=== PATIENT | male | born 1975 | race Caucasian/White ===

== ENCOUNTER 2016-08-12 20:41 | Inpatient (IN) | payer MEDICAID, OTHER ==
[~2016-08-12] VITALS: Ht 172.7 cm; Wt 89.0 kg
[2016-08-12] MEDS ORDERED: ACETAMINOPHEN 325 MG TAB PO ONE (20:45)
[2016-08-12] MEDS ORDERED: SODIUM CHLOR 0.9% 1000 ML INJ 1,000 ML IV ONE ×2 (20:45)
[2016-08-12 20:49] VITALS: BP 136/79; PULSE 132; RESP 27; TEMP 98.5; O2SAT 93
--- NOTE | 2016-08-12 20:50 | PD ---
HPI Chief Complaint: shortness of breath Time Seen by Provider: 20:45 Travel History International Travel<30 days: No Contact w/Intl Traveler<30days: No Traveled to known affect area: No History of Present Illness HPI 41-year-old male with history of chips and deficiency, COPD, on 3 L nasal cannula at home, brought in by ambulance from home for evaluation of cough, shortness of breath, and fever. Symptoms have been progressively worsening over the last 3 days. Cough is nonproductive. The patient also reports having sharp/stabbing right-sided chest pain. He denies history of CAD. No history of DVT or PE. No hemoptysis. He was given 3 albuterol treatments and Solu- Medrol 125 mm IV by EMS prior to arrival without significant improvement. Dyspnea is at rest, worse with exertion. PFSH Social History Tobacco Use: No Allergies-Medications (Allergen,Severity, Reaction): Coded Allergies: No Known Allergies (Unverified , 08/12/16) Reported Meds & Prescriptions Reported Meds & Active Scripts Active Reported [o2] 3 Liter DEV.CANULA DAILY Zoloft (Sertraline HCl) 100 Mg Tab 200 Mg PO DAILY Trazodone (Trazodone HCl) 100 Mg Tab 250 Mg PO HS Zantac 150 Maximum Strength (Ranitidine HCl) 150 Mg Tab 150 Mg PO BID [pantoerazole] 40 Mg PO DAILY Lisinopril 20 Mg Tab 20 Mg PO DAILY Invokana (Canagliflozin) 300 Mg Tab 500 Mg PO DAILY Take before 1st meal of day. Metformin (Metformin HCl) 500 Mg Tab 500 Mg PO BIDPC With meals Albuterol Neb (Albuterol Sulfate) 2.5 Mg/3 Ml Neb 2.5 Mg NEB Q4HR NEB While awake Ventolin Hfa 18 GM Inh (Albuterol Sulfate) 90 Mcg/Act Aer 2 Puff INH Q4-6H PRN Review of Systems Except as stated in HPI: all other systems reviewed are Neg Physical Exam Narrative GENERAL: Well-developed, well-nourished, diaphoretic, moderate respiratory distress, speaking full sentences. SKIN: Warm and diaphoretic. HEAD: Atraumatic. Normocephalic. EYES: Pupils equal and round. No scleral icterus. No injection or drainage. ENT: Mucous membranes pink and moist. NECK: Trachea midline. No JVD. CARDIOVASCULAR: Tachycardic, regular. RESPIRATORY: Moderate respiratory distress. Speaking full sentences. Coarse breath sounds bilaterally. GASTROINTESTINAL: Abdomen soft, non-tender, nondistended. MUSCULOSKELETAL: No obvious deformities. No clubbing. No cyanosis. No edema. NEUROLOGICAL: Awake and alert. No obvious cranial nerve deficits. Motor grossly within normal limits. Normal speech. PSYCHIATRIC: Appropriate mood and affect; insight and judgment normal. Data Data Last Documented VS Vital Signs Date Time Temp Pulse Resp B/P Pulse Ox O2 Delivery O2 Flow Rate FiO2 08/12/16 22:00 108 18 151/86 94 Nasal Cannula 3 08/12/16 20:49 98.5 Orders Complete Blood Count With Diff (08/12/16 20:45) Comprehensive Metabolic Panel (08/12/16 20:45) Act Partial Throm Time (Ptt) (08/12/16 20:45) Prothrombin Time / Inr (Pt) (08/12/16 20:45) Ckmb (Isoenzyme) Profile (08/12/16 20:45) Troponin I (08/12/16 20:45) Influenzae A/B Antigen (08/12/16 20:45) Blood Culture (08/12/16 20:45) Iv Access Insert/Monitor (08/12/16 20:45) Electrocardiogram (08/12/16 20:45) Ecg Monitoring (08/12/16 20:45) Oximetry (08/12/16 20:45) Oxygen Administration (08/12/16 20:45) Chest, Single Ap (08/12/16 20:45) Sodium Chloride 0.9% Flush (Ns Flush) (08/12/16 20:45) Acetaminophen (Tylenol) (08/12/16 20:45) Sodium Chlor 0.9% 1000 Ml Inj (Ns 1000 M (08/12/16 20:45) Sodium Chlor 0.9% 1000 Ml Inj (Ns 1000 M (08/12/16 20:45) Albuterol-Ipratropium Neb (Duoneb Neb) (08/12/16 21:00) Lactic Acid (08/12/16 20:48) D-Dimer (08/12/16 20:45) Ceftriaxone Inj (Rocephin Inj) (08/12/16 21:45) Azithromycin Inj (Zithromax Inj) (08/12/16 21:45) Al-Mag Hy-Si 40-40-4 Mg/Ml Liq (Mag-Al P (08/12/16 22:00) Lidocaine 2% Viscous (Xylocaine 2% Visco (08/12/16 22:00) Admit Order (Ed Use Only) (08/12/16 22:45) Labs Laboratory Tests Test 08/12/16 21:00 White Blood Count 5.3 TH/MM3 Red Blood Count 4.98 MIL/MM3 Hemoglobin 14.4 GM/DL Hematocrit 41.1 % Mean Corpuscular Volume 82.5 FL Mean Corpuscular Hemoglobin 28.9 PG Mean Corpuscular Hemoglobin 35.0 % Concent Red Cell Distribution Width 13.0 % Platelet Count 202 TH/MM3 Mean Platelet Volume 8.2 FL Neutrophils (%) (Auto) 60.8 % Lymphocytes (%) (Auto) 29.2 % Monocytes (%) (Auto) 7.0 % Eosinophils (%) (Auto) 2.3 % Basophils (%) (Auto) 0.7 % Neutrophils # (Auto) 3.2 TH/MM3 Lymphocytes # (Auto) 1.5 TH/MM3 Monocytes # (Auto) 0.4 TH/MM3 Eosinophils # (Auto) 0.1 TH/MM3 Basophils # (Auto) 0.0 TH/MM3 CBC Comment DIFF FINAL Differential Comment Prothrombin Time 10.7 SEC Prothromb Time International 1.0 RATIO Ratio Activated Partial 30.2 SEC Thromboplast Time D-Dimer Quantitative (PE/DVT) 0.41 MG/L FEU Sodium Level 141 MEQ/L Potassium Level 3.3 MEQ/L Chloride Level 103 MEQ/L Carbon Dioxide Level 27.8 MEQ/L Anion Gap 10 MEQ/L Blood Urea Nitrogen 11 MG/DL Creatinine 1.09 MG/DL Estimat Glomerular Filtration 74 ML/MIN Rate Random Glucose 267 MG/DL Lactic Acid Level 2.2 mmol/L Calcium Level 8.0 MG/DL Total Bilirubin 0.4 MG/DL Aspartate Amino Transf 15 U/L (AST/SGOT) Alanine Aminotransferase 28 U/L (ALT/SGPT) Alkaline Phosphatase 111 U/L Total Creatine Kinase 52 U/L Troponin I LESS THAN 0.02 NG/ML Total Protein 7.2 GM/DL Albumin 3.6 GM/DL MDM Medical Decision Making Medical Screen Exam Complete: Yes Emergency Medical Condition: Yes Interpretation(s) EKG: Sinus tachycardia, rate 123, normal axis, normal intervals, no acute ischemic abnormality. Differential Diagnosis Pneumonia, influenza, COPD exacerbation, ACS, PE, pneumothorax Narrative Course Initial vital signs show heart rate 132, respiratory rate 27, blood pressure 136 /79, pulse ox 93% on 3 L nasal cannula. EMS reported a temp of 99.9F. CBC is unremarkable. CMP is remarkable for potassium 3.3, random glucose 267, otherwise unremarkable. Cardiac enzymes are negative. D-dimer 0.41. Influenza is negative. Chest x-ray: Minimal area of focal atelectasis or consolidation at the right base. Patient was given IV Rocephin and azithromycin. He was also given 3 DuoNeb treatments here in the emergency room. Other he is feeling slightly improved, he still for short of breath and has generalized weakness. He is still tachycardic despite receiving IV fluids. Given history of alpha-1 antitrypsin disease/COPD, patient be admitted for overnight observation for CPD exacerbation , pneumonia. Diagnosis Primary Impression: COPD exacerbation Additional Impression: Pneumonia Qualified Code: J18.1 - Pneumonia of right lower lobe due to infectious organism Admitting Information Admitting Physician Requests: Observation Osvaldo Roland MD Aug 12, 2016 20:49
[2016-08-12 20:53] VITALS: O2SAT 91
[2016-08-12] MEDS ORDERED: TRAZ100T4 PO (21:04)
[2016-08-12] MEDS ORDERED: LISI-515 PO (21:04)
[2016-08-12] MEDS ORDERED: VENTAER INH (21:04)
[2016-08-12] MEDS ORDERED: ALBU0.08 NEB (21:04)
[2016-08-12] MEDS ORDERED: o2 NAS.CANULA (21:04)
[2016-08-12] MEDS ORDERED: METF500T PO (21:04)
[2016-08-12] MEDS ORDERED: PANTOPRAZOLE PO (21:04)
[2016-08-12] MEDS ORDERED: CANA300T PO (21:04)
[2016-08-12] MEDS ORDERED: ZANTTAB PO (21:04)
[2016-08-12] MEDS ORDERED: ZOLO100T PO (21:04)
[2016-08-12] MEDS: RESP: ALBUTEROL 2.5 MG/IPRATROPIUM 0.5 MG NEB (SCH) INH ×2 (21:10→23:32)
[2016-08-12] MEDS: SODIUM CHLORIDE 0.9% FLUSH 5 ML FLUSH IVF PRN ×3 (21:17→22:49)
[2016-08-12 21:33] LABS: AUTOMATED NEUTROPHIL # 3.2 TH/MM3 (1.8-7.7); BASOPHIL % 0.7 % (0.0-2.0); EOSINOPHIL # 0.1 TH/MM3 (0-0.4); EOSINOPHIL % 2.3 % (0.0-4.0); HEMATOCRIT 41.1 % (39.0-51.0); HEMO FLAGS DIFF FINAL; LYMPH % 29.2 % (9.0-44.0); LYMPHOCYTE # 1.5 TH/MM3 (1.0-4.8); MEAN CELL VOLUME 82.5 FL (80.0-100.0); MEAN CORPUSCULAR HEMOGLOBIN 28.9 PG (27.0-34.0); NEUT % 60.8 % (16.0-70.0); PLATELET COUNT 202 TH/MM3 (150-450); RED BLOOD COUNT 4.98 MIL/MM3 (4.50-5.90); WHITE BLOOD COUNT 5.3 TH/MM3 (4.0-11.0)
--- NOTE | 2016-08-12 21:39 | RADRPT ---
EXAM DATE/TIME: 08/12/2016 21:25 [facility] COMPARISON: No previous studies available for comparison. INDICATIONS : Short of breath. MEDICAL HISTORY : None. SURGICAL HISTORY : None. ENCOUNTER: Initial ACUITY: 1 day PAIN SCORE: 5/10 LOCATION: Bilateral chest FINDINGS: The heart size is normal. There is minimal focal density at the right base. The left lung is clear. N o effusion is seen. CONCLUSION: Minimal area of focal atelectasis or consolidation at the right base. Quan Ruby MD on August 12, 2016 at 21:37 Board Certified Radiologist. This report was verified electronically.
[2016-08-12] MEDS ORDERED: cefTRIAXone INJ 1,000 MG in SODIUM CHLORIDE 0.9% INJ 100 ML IV ONE (21:45)
[2016-08-12] MEDS ORDERED: AZITHROMYCIN INJ 500 MG in SODIUM CHLOR 0.9% 250 ML INJ 250 ML IV ONE (21:45)
[2016-08-12 21:54] LABS: APTT (PATIENT) 30.2 SEC (24.3-30.1); PROTHROMBIN TIME - PATIENT 10.7 SEC (9.8-11.6)
[2016-08-12 21:59] LABS: ALKALINE PHOSPHATASE 111 U/L (45-117); ALT (GPT) 28 U/L (12-78); ANION GAP 10 MEQ/L (5-15); AST (GOT) 15 U/L (15-37); BICARBONATE 27.8 MEQ/L (21.0-32.0); BLOOD UREA NITROGEN 11 MG/DL (7-18); CHLORIDE 103 MEQ/L (98-107); GLOMERULAR FILTRATION RATE 74 ML/MIN (>89); SODIUM (NA) 141 MEQ/L (136-145); TOTAL BILIRUBIN ADULT 0.4 MG/DL (0.2-1.0)
[2016-08-12 22:00] VITALS: BP 151/86; PULSE 108; RESP 18; O2SAT 94
[2016-08-12] MEDS ORDERED: ALUMINUM/MAGNESIUM/SIMETH 30 ML CUP PO ONE (22:00)
[2016-08-12] MEDS ORDERED: LIDOCAINE VISCOUS 2% SOLN 15 ML UDC PO ONE (22:00)
[2016-08-12 22:11] LABS: CREATINE KINASE 52 U/L (39-308); POTASSIUM 3.3 MEQ/L (3.5-5.1)
[2016-08-12] MEDS ORDERED: ACETAMINOPHEN/HYDROcodone 325 MG/5 MG TAB PO PRN (22:45)
[2016-08-12] MEDS ORDERED: RESP: ALBUTEROL 2.5 MG/IPRATROPIUM 0.5 MG NEB (PRN) NEB (22:45)
[2016-08-12] MEDS ORDERED: ACETAMINOPHEN 325 MG TAB PO PRN (22:45)
[2016-08-12] MEDS ORDERED: BISACODYL 10 MG SUPP PR PRN (22:45)
--- NOTE | 2016-08-12 23:04 | HHI.HP ---
[facility] Unknown Admission Diagnosis COPD exacerbation, pneumonia Diagnoses: (1) PNA (pneumonia) Diagnosis: Principal (2) COPD (chronic obstructive pulmonary disease) Diagnosis: Principal (3) Xahth-6-[id number] deficiency Diagnosis: Principal (4) HTN (hypertension) Diagnosis: Principal (5) DM (diabetes mellitus) Diagnosis: Principal Travel History International Travel<30 Days: No Contact w/Intl Traveler <30 Da: No Traveled to Known Affected Are: No History of Present Illness This is a 41-year-old male with a PMH of Alpha 1 Antitrypsin Deficiency, COPD, O2 Dependent on 3L NC, DM and HTN who was brought to the ER by EMS secondary to c/o SOB. States symptoms have gotten progressively worse over the last 2-3 days. Denies fever or chills. Reports non-productive cough in addition to wheezing. S/p Solu-Medrol 125mg x1 and DuoNeb by EMS w/ some improvement. On arrival, BP 136/79, HR 132, O2 sat 93% on RA, Afebrile. CBC unremarkable. K+ 3.3. Lactic Acid 2.2. BS 267. CXR with minimal area of focal atelectasis or consolidation right base. S/p Blood Cultures, Rocephin/Zithro and Solu-Medrol in ER w/ improvement. Review of Systems Other ROS: 14 point review of systems otherwise negative. Past Family Social History Past Medical History PMH: Alpha 1 Antitrypsin Deficiency, COPD, O2 Dependent on 3L NC, DM and HTN Past Surgical History PAST SURGICAL HISTORY: Hernia Repair, Left Shoulder Surgery, Left Wrist Surgery Allergies: Coded Allergies: No Known Allergies (Unverified , 08/12/16) Family History PAST FAMILY HISTORY: Reviewed, positive for DM. Social History PAST SOCIAL HISTORY: History of tobacco abuse, quit 1 year ago. Negative for alcohol or drugs. Physical Exam Vital Signs Vital Signs Date Time Temp Pulse Resp B/P Pulse Ox O2 Delivery O2 Flow Rate FiO2 08/12/16 20:53 91 3 08/12/16 20:53 92 Nasal Cannula 3 08/12/16 20:49 98.5 132 27 136/79 93 Physical Exam PE: GENERAL: Pleasant middle-aged white male in no acute distress, occasional dry cough HEENT: PERRLA, EOMI. No scleral icterus or conjunctival pallor. No lid lag or facial droop. CARDIOVASCULAR: Regular rate and rhythm. No obvious murmurs to auscultation. No chest tenderness to palpation. RESPIRATORY: No obvious rhonchi. Occasional wheezing. Clear to auscultation. Breath sounds equal bilaterally. GASTROINTESTINAL: Abdomen soft, non-tender, nondistended. BS normal. MUSCULOSKELETAL: Extremities without clubbing, cyanosis, or edema. No obvious deformities. NEUROLOGICAL: Awake, alert and oriented x4. No focal neurologic deficits. Moving both upper and lower extremities spontaneously. Laboratory Laboratory Tests Test 08/12/16 21:00 White Blood Count 5.3 Red Blood Count 4.98 Hemoglobin 14.4 Hematocrit 41.1 Mean Corpuscular Volume 82.5 Mean Corpuscular Hemoglobin 28.9 Mean Corpuscular Hemoglobin 35.0 Concent Red Cell Distribution Width 13.0 Platelet Count 202 Mean Platelet Volume 8.2 Neutrophils (%) (Auto) 60.8 Lymphocytes (%) (Auto) 29.2 Monocytes (%) (Auto) 7.0 Eosinophils (%) (Auto) 2.3 Basophils (%) (Auto) 0.7 Neutrophils # (Auto) 3.2 Lymphocytes # (Auto) 1.5 Monocytes # (Auto) 0.4 Eosinophils # (Auto) 0.1 Basophils # (Auto) 0.0 CBC Comment DIFF FINAL Differential Comment Prothrombin Time 10.7 Prothromb Time International 1.0 Ratio Activated Partial 30.2 Thromboplast Time D-Dimer Quantitative (PE/DVT) 0.41 Sodium Level 141 Potassium Level 3.3 Chloride Level 103 Carbon Dioxide Level 27.8 Anion Gap 10 Blood Urea Nitrogen 11 Creatinine 1.09 Estimat Glomerular Filtration 74 Rate Random Glucose 267 Calcium Level 8.0 Total Bilirubin 0.4 Aspartate Amino Transf 15 (AST/SGOT) Alanine Aminotransferase 28 (ALT/SGPT) Alkaline Phosphatase 111 Total Creatine Kinase 52 Troponin I LESS THAN 0.02 Total Protein 7.2 Albumin 3.6 Date/Time Procedure Status Source Growth 08/12/16 21:50 Influenza Types A,B Antigen (TK) Received Nasal Washing Pending 08/12/16 21:00 Aerobic Blood Culture Received Blood Peripheral Pending 08/12/16 21:00 Anaerobic Blood Culture Received Blood Peripheral Pending Result Diagram: 08/12/16 2100 08/12/16 2100 Assessment and Plan Problem List: (1) PNA (pneumonia) ICD Code: J18.9 Status: Acute (2) COPD (chronic obstructive pulmonary disease) ICD Code: J44.9 Status: Acute (3) Lfkiz-6-hzehelhebfy deficiency ICD Code: E88.01 Status: Acute (4) DM (diabetes mellitus) ICD Code: E11.9 Status: Acute (5) HTN (hypertension) ICD Code: I10 Status: Acute Assessment and Plan A/P: 1. PNA: CXR w/ RLL consolidation, images reviewed by me. Progressive SOB x2- 3 days w/ non-productive cough. S/p Blood Cultures, Rocephin/Zithro in ER, follow up cultures, continue w/ IV Abx. 2. Alpha 1 Antitrypsin Deficiency: O2 Dependent on 3L NC. O2 sat 93-94% on 3L NC, will continue to monitor. 3. COPD: Chronic Respiratory Failure secondary to Alpha-1 Antitrypsin Def w/ Acute Exacerbation. Solu-Medrol, DuoNeb, Symbicort, Mucinex. 4. DM: Sliding scale w/ Accu-Cheks. Resume home Metformin, Invokana. 5. HTN: Controlled. Resume Lisinopril. Monitor BP. 6. DVT Prophylaxis: SCD/Teds. 7. Social work for d/c planning as needed. 8. Case discussed w/ ER physician at length. Dennise Martin MD Aug 12, 2016 23:04
[2016-08-12] MEDS ORDERED: DEXTROSE 50% IN WATER 50 ML VIAL(D50) IV PUSH PRN (23:15)
[2016-08-12] MEDS ORDERED: GLUCAGON 1 MG/ML VIAL OTHER PRN (23:15)
[2016-08-12] MEDS: methylPREDNISolone SOD SUCC 40 MG/1 ML VIAL IV PUSH SCH (23:56)
[2016-08-13] VITALS (11 sets, daily range): BP systolic 99–148; BP diastolic 64–85; PULSE 78–102; RESP 17–20; TEMP 96–98.1; O2SAT 92–95
[2016-08-13] MEDS: ACETAMINOPHEN/HYDROcodone 325 MG/10 MG TAB PO PRN ×6 (00:05→22:21)
[2016-08-13] MEDS: ONDANSETRON HCL 4 MG/2 ML VIAL IVP PRN ×2 (03:16→12:54)
[2016-08-13] MEDS: methylPREDNISolone SOD SUCC 40 MG/1 ML VIAL IV PUSH SCH ×3 (04:24→17:30)
[2016-08-13] MEDS ORDERED: INSULIN ASPART SUPPLEMENTAL SCALE SQ SCH (07:00)
[2016-08-13] MEDS ORDERED: RESP: ALBUTEROL 2.5 MG/IPRATROPIUM 0.5 MG NEB (SCH) NEB (08:00)
[2016-08-13 08:34] LABS: AUTOMATED NEUTROPHIL # 3.8 TH/MM3 (1.8-7.7); BASOPHIL % 0.3 % (0.0-2.0); EOSINOPHIL % 0.1 % (0.0-4.0); HEMATOCRIT 39.6 % (39.0-51.0); HEMO FLAGS DIFF FINAL; LYMPH % 11.3 % (9.0-44.0); LYMPHOCYTE # 0.5 TH/MM3 (1.0-4.8); MEAN CELL VOLUME 82.7 FL (80.0-100.0); MEAN CORPUSCULAR HEMOGLOBIN 27.4 PG (27.0-34.0); MEAN CORPUSCULAR HGB CONC 33.1 % (32.0-36.0); MONO % 0.8 % (0.0-8.0); NEUT % 87.5 % (16.0-70.0); PLATELET COUNT 172 TH/MM3 (150-450); RED BLOOD COUNT 4.79 MIL/MM3 (4.50-5.90); RED CELL DISTRIBUTION WIDTH 12.7 % (11.6-17.2); WHITE BLOOD COUNT 4.4 TH/MM3 (4.0-11.0)
--- NOTE | 2016-08-13 08:46 | HHI.PR ---
Subjective Remarks Follow-up for shortness of breath and chronic abdominal pain. The patient continues to complain of shortness breath, normally on 3 L at home. His seismic computer is Dr. Ansari. He was recently hospitalized for pneumonia in [place] for pneumonia. He had some headache and dizziness earlier this week. He reports having a recent negative head CT. He has chronic abdominal pain, is currently being worked up for possible pancreatic carcinoma. He states he has chronic pancreatitis. He is awaiting pulmonology clearance for biopsy of the mass. Objective Vitals Vital Signs Date Time Temp Pulse Resp B/P Pulse Ox O2 Delivery O2 Flow Rate FiO2 08/13/16 07:25 95 Nasal Cannula 3.00 08/13/16 07:17 96.9 91 19 110/74 95 08/13/16 05:43 97.7 78 20 106/64 95 08/13/16 01:30 95 08/13/16 00:59 98.1 92 20 99/64 93 08/13/16 00:39 94 Nasal Cannula 3.00 08/13/16 00:00 102 18 148/85 93 Nasal Cannula 3 08/12/16 22:00 108 18 151/86 94 Nasal Cannula 3 08/12/16 20:53 91 3 08/12/16 20:53 92 Nasal Cannula 3 08/12/16 20:49 98.5 132 27 136/79 93 Result Diagram: 08/13/16 0744 08/12/162099 Imaging Last Impressions Chest X-Ray 08/12/162044 Signed Impressions: Service Date/Time: Friday, August 12, 2016 21:25 - CONCLUSION: Minimal area of focal atelectasis or consolidation at the right base. Quan Ruby MD Objective Remarks GENERAL: Well-developed well-nourished. In no acute distress. SKIN: Warm and dry. No lesions noted. HEENT: Normocephalic. Pupils equal and round. Mucous membranes pink and moist. CARDIOVASCULAR: Regular rate and rhythm. No murmur appreciated. RESPIRATORY: No accessory muscle use. Clear to auscultation. Breath sounds equal bilaterally. Diffuse wheezing. GASTROINTESTINAL: Abdomen soft, generalized tenderness to palpation, worse periumbilically, nondistended. Bowel sounds x4. MUSCULOSKELETAL: No obvious deformities. No clubbing or cyanosis. No edema. NEUROLOGICAL: Awake and alert. No focal neurological deficits. Moves upper and lower extremities spontaneously. Normal speech. PSYCHIATRIC: Appropriate mood and affect; insight and judgment normal. A/P Problem List: (1) PNA (pneumonia) ICD Code: J18.9 Status: Acute (2) COPD (chronic obstructive pulmonary disease) ICD Code: J44.9 Status: Acute (3) Vklto-4-jsrheypaulf deficiency ICD Code: E88.01 Status: Acute (4) DM (diabetes mellitus) ICD Code: E11.9 Status: Acute (5) HTN (hypertension) ICD Code: I10 Status: Acute Assessment and Plan 41-year-old male with a PMH of Alpha 1 Antitrypsin Deficiency, COPD, O2 Dependent on 3L NC, DM and HTN who presented with SOB Severe sepsis: Secondary to pneumonia as below. Tachycardia and tachypnea. Lactic acid 2.2. Antibiotics as below. Blood cultures pending. IVF. PNA: CXR w/ RLL consolidation, reviewed. Progressive SOB x2-3 days w/ non- productive cough. Cover for HCAP with IV Zosyn. Check sputum culture and urinary antigens. COPD: Chronic Respiratory Failure on home O2 secondary to Alpha-1 Antitrypsin deficiency. Presenting w/ Acute Exacerbation. IV Solu-Medrol. DuoNeb scheduled and as needed. Symbicort, Mucinex. DM: Sliding scale w/ Accu-Cheks. Continue home Metformin, Invokana. HTN: Controlled. Continue Lisinopril. Monitor BP. GERD: Continue H2 dereck. DVT Prophylaxis: SCD/Teds. Written by Simeon Figueroa, acting as scribe for Dr. Price on 08/13/16 at 08:45. The documentation accurately reflects the work performed [id number] by me on at 0845 Discharge Planning Admit to inpatient. Disposition pending clinical course. Simeon Figueroa Aug 13, 2016 08:46 Ty Price MD Aug 13, 2016 15:17
[2016-08-13] MEDS: SERTRALINE HCL 100 MG TAB PO SCH (09:00)
[2016-08-13] MEDS ORDERED: LISINOPRIL 20 MG TAB PO SCH (09:00)
[2016-08-13] MEDS: guaiFENesin E.R. 600 MG TAB PO SCH ×2 (09:00→20:50)
[2016-08-13] MEDS: FAMOTIDINE 20 MG TAB PO SCH ×2 (09:00→20:49)
[2016-08-13] MEDS: metFORMIN HCL 500 MG TAB PO SCH ×2 (09:00→17:30)
[2016-08-13 09:01] LABS: ALKALINE PHOSPHATASE 102 U/L (45-117); ALT (GPT) 21 U/L (12-78); ANION GAP 12 MEQ/L (5-15); AST (GOT) 6 U/L (15-37); BLOOD UREA NITROGEN 10 MG/DL (7-18); CHLORIDE 103 MEQ/L (98-107); GLOMERULAR FILTRATION RATE 80 ML/MIN (>89); MAGNESIUM 2.2 MG/DL (1.5-2.5); POTASSIUM 3.8 MEQ/L (3.5-5.1); SODIUM (NA) 139 MEQ/L (136-145); TOTAL BILIRUBIN ADULT 0.2 MG/DL (0.2-1.0)
[2016-08-13] MEDS: PIPERACIL-TAZO 4.5 GM PREMIX 100 ML IV SCH ×3 (09:01→20:51)
[2016-08-13] MEDS: SODIUM CHLORIDE 0.9% FLUSH 5 ML FLUSH FLUSH SCH ×2 (09:02→21:00)
[2016-08-13] MEDS: SODIUM CHLOR 0.9% 1000 ML INJ 1,000 ML IV SCH ×2 (10:07→17:40)
[2016-08-13] MEDS ORDERED: PANT40TA3 PO (10:28)
[2016-08-13] MEDS: RESP: ALBUTEROL 2.5 MG/IPRATROPIUM 0.5 MG NEB (SCH) NEB ×2 (12:40→20:32)
[2016-08-13] MEDS: INSULIN ASPART SUPPLEMENTAL SCALE SQ SCH ×3 (12:43→21:00)
[2016-08-13] MEDS: traZODone HCL 100 MG TAB PO SCH (21:00)
[2016-08-13] MEDS ORDERED: cefTRIAXone INJ 1,000 MG in SODIUM CHLORIDE 0.9% INJ 100 ML IV SCH (22:00)
[2016-08-13] MEDS ORDERED: AZITHROMYCIN INJ 500 MG in SODIUM CHLOR 0.9% 250 ML INJ 250 ML IV SCH (23:00)
--- NOTE | 2016-08-13 23:38 | EKG ---
Date Performed: 08/12/2016 Time Performed: 21:02:25 PTAGE: 41 years EKG: SINUS TACHYCARDIA ABNORMAL RHYTHM ECG NO PREVIOUS TRACING DOCTOR: Brendon Briones Interpretating Date/Time 08/13/2016 23:36:31
[2016-08-14] VITALS (9 sets, daily range): BP systolic 89–139; BP diastolic 54–87; PULSE 69–96; RESP 16–20; TEMP 95.7–98.1; O2SAT 92–96
[2016-08-14] MEDS: SODIUM CHLORIDE 0.9% FLUSH 5 ML FLUSH FLUSH PRN ×3 (01:34→04:59)
[2016-08-14] MEDS: methylPREDNISolone SOD SUCC 40 MG/1 ML VIAL IV PUSH SCH ×4 (01:34→18:29)
[2016-08-14] MEDS: PIPERACIL-TAZO 4.5 GM PREMIX 100 ML IV SCH ×4 (04:53→20:46)
[2016-08-14] MEDS: SODIUM CHLOR 0.9% 1000 ML INJ 1,000 ML IV SCH ×2 (05:45→15:45)
[2016-08-14] MEDS: INSULIN ASPART SUPPLEMENTAL SCALE SQ SCH ×4 (06:50→21:00)
[2016-08-14] MEDS: RESP: ALBUTEROL 2.5 MG/IPRATROPIUM 0.5 MG NEB (SCH) NEB ×3 (08:00→19:50)
[2016-08-14] MEDS: SODIUM CHLORIDE 0.9% FLUSH 5 ML FLUSH FLUSH SCH ×2 (09:00→20:46)
[2016-08-14] MEDS: metFORMIN HCL 500 MG TAB PO SCH ×2 (09:08→18:29)
[2016-08-14] MEDS: SERTRALINE HCL 100 MG TAB PO SCH (09:09)
[2016-08-14] MEDS: FAMOTIDINE 20 MG TAB PO SCH ×2 (09:09→20:46)
[2016-08-14] MEDS: guaiFENesin E.R. 600 MG TAB PO SCH ×2 (09:09→20:46)
[2016-08-14] MEDS: ACETAMINOPHEN/HYDROcodone 325 MG/10 MG TAB PO PRN ×4 (09:09→22:29)
--- NOTE | 2016-08-14 14:16 | HHI.PR ---
Subjective Remarks Follow-up for shortness of breath. The patient reports this headache and dizziness have improved today. He continues to have cough, shortness breath, weakness, essentially unchanged. He has been able to ambulate in the room. Objective Vitals Vital Signs Date Time Temp Pulse Resp B/P Pulse Ox O2 Delivery O2 Flow Rate FiO2 08/14/16 09:04 94 Nasal Cannula 3.00 08/14/16 08:00 96.7 75 20 126/82 92 08/14/16 04:00 95.7 69 18 89/54 94 08/14/16 00:05 96.9 81 19 89/54 92 08/13/16 23:21 16 08/13/16 20:47 96 Nasal Cannula 3.00 08/13/16 20:35 94 Nasal Cannula 3.00 08/13/16 20:00 97.2 88 17 112/75 92 08/13/16 19:41 Nasal Cannula 3.00 08/13/16 17:42 94 Nasal Cannula 3.00 08/13/16 17:35 96.0 88 17 117/68 95 08/13/16 15:53 98.0 95 20 119/75 93 I/O 08/13/16 08/13/16 08/13/16 08/14/16 08/14/16 08/14/16 07:00 15:00 23:00 07:00 15:00 23:00 Intake Total 390 ml 490 ml Output Total 300 ml Balance 90 ml 490 ml Intake Oral 240 ml 240 ml IV Total 150 ml 250 ml Output Urine Total 300 ml # Voids 1 2 # Bowel Movements 0 0 Result Diagram: 08/13/16 0744 08/13/1644 Imaging Last Impressions Chest X-Ray 08/12/162044 Signed Impressions: Service Date/Time: Friday, August 12, 2016 21:25 - CONCLUSION: Minimal area of focal atelectasis or consolidation at the right base. Quan Ruby MD Objective Remarks GENERAL: Well-developed well-nourished. In no acute distress. SKIN: Warm and dry. No lesions noted. HEENT: Normocephalic. Pupils equal and round. Mucous membranes pink and moist. CARDIOVASCULAR: Regular rate and rhythm. No murmur appreciated. RESPIRATORY: No accessory muscle use. Clear to auscultation with bronchial sounds. Improving wheezing. GASTROINTESTINAL: Abdomen soft, generalized tenderness to palpation, worse periumbilically, nondistended. Bowel sounds x4. MUSCULOSKELETAL: No obvious deformities. No clubbing or cyanosis. No edema. NEUROLOGICAL: Awake and alert. No focal neurological deficits. Moves upper and lower extremities spontaneously. Normal speech. PSYCHIATRIC: Appropriate mood and affect; insight and judgment normal. A/P Problem List: (1) PNA (pneumonia) ICD Code: J18.9 Status: Acute (2) COPD (chronic obstructive pulmonary disease) ICD Code: J44.9 Status: Acute (3) Klpns-4-lfouoyxpqwk deficiency ICD Code: E88.01 Status: Acute (4) DM (diabetes mellitus) ICD Code: E11.9 Status: Acute (5) HTN (hypertension) ICD Code: I10 Status: Acute Assessment and Plan 41-year-old male with a PMH of Alpha 1 Antitrypsin Deficiency, COPD, O2 Dependent on 3L NC, DM and HTN who presented with SOB Severe sepsis: Secondary to pneumonia as below. Tachycardia and tachypnea. Lactic acid 2.2. Antibiotics as below. Blood cultures with NGTD. IVF. Improving. PNA: CXR w/ RLL consolidation, reviewed. Progressive SOB x2-3 days w/ non- productive cough. Cover for HCAP with IV Zosyn. Urinary antigens negative. Sputum culture primarily growing normal respiratory gillian. COPD: Chronic Respiratory Failure on home O2 secondary to Alpha-1 Antitrypsin deficiency. Presenting w/ Acute Exacerbation. IV Solu-Medrol. DuoNeb scheduled and as needed. Symbicort, Mucinex. DM: Sliding scale w/ Accu-Cheks. Continue home Metformin, Invokana. HTN: Borderline low this morning. Continue Lisinopril with hold parameters. Monitor BP. GERD: Continue H2 dereck. DVT Prophylaxis: SCD/Teds. Written by Simeon Figueroa, acting as scribe for Dr. Taylor on 08/14/16 at 14:15. The documentation accurately reflects the work performed [id number] by me on at 1415 Discharge Planning Disposition pending clinical course. Simeon Figueroa Aug 14, 2016 14:15 Ty Price MD Aug 14, 2016 16:47
[2016-08-14] MEDS: traZODone HCL 100 MG TAB PO SCH (20:46)
[2016-08-15] VITALS: BP 112/69; PULSE 87; RESP 16; TEMP 97.3; O2SAT 95
[2016-08-15] MEDS: SODIUM CHLOR 0.9% 1000 ML INJ 1,000 ML IV SCH ×3 (01:45→20:53)
[2016-08-15] MEDS: PIPERACIL-TAZO 4.5 GM PREMIX 100 ML IV SCH ×4 (03:40→20:52)
[2016-08-15] MEDS: ACETAMINOPHEN/HYDROcodone 325 MG/10 MG TAB PO PRN ×5 (03:48→22:34)
[2016-08-15 04:00] VITALS: BP 99/68; PULSE 74; RESP 16; TEMP 96.4; O2SAT 94
[2016-08-15] MEDS: methylPREDNISolone SOD SUCC 40 MG/1 ML VIAL IV PUSH SCH ×5 (05:49→22:34)
[2016-08-15] MEDS: INSULIN ASPART SUPPLEMENTAL SCALE SQ SCH ×4 (05:54→20:53)
[2016-08-15] MEDS: RESP: ALBUTEROL 2.5 MG/IPRATROPIUM 0.5 MG NEB (SCH) NEB ×3 (07:50→20:00)
[2016-08-15 08:02] VITALS: BP 120/81; PULSE 72; RESP 16; TEMP 97.6; O2SAT 96
[2016-08-15] MEDS: CANAGLIFLOZIN PO SCH (09:00)
[2016-08-15] MEDS: metFORMIN HCL 500 MG TAB PO SCH ×2 (09:03→18:10)
[2016-08-15] MEDS: SERTRALINE HCL 100 MG TAB PO SCH (09:03)
[2016-08-15] MEDS: guaiFENesin E.R. 600 MG TAB PO SCH ×2 (09:03→20:47)
[2016-08-15] MEDS: FAMOTIDINE 20 MG TAB PO SCH ×2 (09:03→20:47)
[2016-08-15] MEDS: SODIUM CHLORIDE 0.9% FLUSH 5 ML FLUSH FLUSH SCH ×2 (09:08→20:47)
[2016-08-15 12:04] VITALS: BP 129/74; PULSE 76; RESP 16; TEMP 97.2; O2SAT 95
--- NOTE | 2016-08-15 12:16 | HHI.PR ---
Subjective Remarks Follow-up COPD and pneumonia. Improving but still with significant dyspnea even with slight exertion. Wants to be checked for pancreatitis flareup secondary to increased abdominal pain. Tolerating by mouth. Mild nausea. Discussed with RN Objective Vitals Vital Signs Date Time Temp Pulse Resp B/P Pulse Ox O2 Delivery O2 Flow Rate FiO2 08/15/16 08:02 97.6 72 16 120/81 96 08/15/16 07:51 Nasal Cannula 3.00 08/15/16 04:00 96.4 74 16 99/68 94 08/15/16 00:00 97.3 87 16 112/69 95 08/14/16 22:00 3.00 08/14/16 20:00 96.9 90 16 139/87 94 08/14/16 19:50 95 Nasal Cannula 3.00 08/14/16 18:00 79 08/14/16 16:00 97.3 96 16 133/84 96 I/O 08/14/16 08/14/16 08/14/16 08/15/16 08/15/16 08/15/16 07:00 15:00 23:00 07:00 15:00 23:00 Intake Total 490 ml 720 ml 240 ml 360 ml Output Total 1575 ml 800 ml 650 ml Balance 490 ml -855 ml -560 ml -290 ml Intake Oral 240 ml 720 ml 240 ml 360 ml IV Total 250 ml Output Urine Total 1575 ml 800 ml 650 ml # Voids 2 3 # Bowel Movements 0 0 0 Result Diagram: 08/13/1644 08/13/16743 Objective Remarks GENERAL: Well-developed well-nourished in no distress SKIN: Warm and dry. HEAD: Atraumatic. Normocephalic. EYES: Pupils equal and round. No scleral icterus. No injection or drainage. ENT: No nasal bleeding or discharge. Mucous membranes pink and moist. NECK: Trachea midline. No JVD. CARDIOVASCULAR: Regular rate and rhythm. RESPIRATORY: No accessory muscle use. Diffuse expiratory wheezes Breath sounds equal bilaterally. GASTROINTESTINAL: Abdomen soft, nondistended. Tender right upper and epigastric areas MUSCULOSKELETAL: Extremities without clubbing, cyanosis, or edema. No obvious deformities. NEUROLOGICAL: Awake and alert. No obvious cranial nerve deficits. Motor grossly within normal limits. Five out of 5 muscle strength in the arms and legs. Normal speech. PSYCHIATRIC: Appropriate mood and affect; insight and judgment normal. Procedures none A/P Problem List: (1) PNA (pneumonia) ICD Code: J18.9 Status: Acute (2) COPD (chronic obstructive pulmonary disease) ICD Code: J44.9 Status: Acute (3) Dzfgo-7-wesmbuxnxsj deficiency ICD Code: E88.01 Status: Acute (4) DM (diabetes mellitus) ICD Code: E11.9 Status: Acute (5) HTN (hypertension) ICD Code: I10 Status: Acute Assessment and Plan 41-year-old male with a PMH of Alpha 1 Antitrypsin Deficiency, COPD, O2 Dependent on 3L NC, DM and HTN who presented with SOB Severe sepsis: Secondary to pneumonia as below. Tachycardia and tachypnea. Lactic acid 2.2. Antibiotics as below. Blood cultures with NGTD. IVF. Improving. PNA: CXR w/ RLL consolidation, reviewed. Progressive SOB x2-3 days w/ non- productive cough. Cover for HCAP with IV Zosyn. Urinary antigens negative. Sputum culture primarily growing normal respiratory gillian. Still with significant dyspnea on exertion COPD: Chronic Respiratory Failure on home O2 secondary to Alpha-1 Antitrypsin deficiency. Presenting w/ Acute Exacerbation. IV Solu-Medrol. DuoNeb scheduled and as needed. Symbicort, Mucinex. Still with expiratory wheezes DM: Sliding scale w/ Accu-Cheks. Continue home Metformin, Invokana. Hyperglycemia secondary to steroids HTN: Borderline low in the morning secondary to trazodone. Patient educated. Continue Lisinopril with hold parameters. Monitor BP. Abdominal pain with history of pancreatitis. Tolerating by mouth. Obtain CBC, CMP and lipase in the morning. Continue pain management. GERD: Continue H2 dereck. DVT Prophylaxis: SCD/Teds. Ty Price MD Aug 15, 2016 12:16
[2016-08-15 16:00] VITALS: BP 126/76; PULSE 88; RESP 18; TEMP 97.4; O2SAT 96
[2016-08-15 20:00] VITALS: BP 142/91; PULSE 75; RESP 17; TEMP 96.8; O2SAT 93; O2SAT 94
[2016-08-15] MEDS: traZODone HCL 100 MG TAB PO SCH (20:47)
[2016-08-16] VITALS (8 sets, daily range): BP systolic 104–134; BP diastolic 65–87; PULSE 63–94; RESP 16–19; TEMP 95.8–98.1; O2SAT 93–97
[2016-08-16] MEDS: PIPERACIL-TAZO 4.5 GM PREMIX 100 ML IV SCH ×4 (03:27→22:47)
[2016-08-16] MEDS: ACETAMINOPHEN/HYDROcodone 325 MG/10 MG TAB PO PRN ×5 (03:55→22:45)
[2016-08-16] MEDS: methylPREDNISolone SOD SUCC 40 MG/1 ML VIAL IV PUSH SCH ×2 (05:09→11:23)
[2016-08-16] MEDS: INSULIN ASPART SUPPLEMENTAL SCALE SQ SCH ×4 (05:12→21:00)
[2016-08-16] MEDS: SODIUM CHLOR 0.9% 1000 ML INJ 1,000 ML IV SCH ×2 (07:45→17:45)
[2016-08-16 08:30] LABS: AUTOMATED NEUTROPHIL # 6.8 TH/MM3 (1.8-7.7); BASOPHIL % 0.2 % (0.0-2.0); HEMATOCRIT 40.6 % (39.0-51.0); LYMPH % 9.2 % (9.0-44.0); LYMPHOCYTE # 0.7 TH/MM3 (1.0-4.8); MEAN CELL VOLUME 83.3 FL (80.0-100.0); MEAN CORPUSCULAR HEMOGLOBIN 27.6 PG (27.0-34.0); MEAN CORPUSCULAR HGB CONC 33.1 % (32.0-36.0); MONO % 5.4 % (0.0-8.0); NEUT % 85.2 % (16.0-70.0); PLATELET COUNT 199 TH/MM3 (150-450); RED BLOOD COUNT 4.88 MIL/MM3 (4.50-5.90); RED CELL DISTRIBUTION WIDTH 12.9 % (11.6-17.2)
[2016-08-16 08:37] LABS: HEMO FLAGS AUTO DIFF
[2016-08-16 08:52] LABS: ALKALINE PHOSPHATASE 79 U/L (45-117); ALT (GPT) 16 U/L (12-78); ANION GAP 9 MEQ/L (5-15); AST (GOT) LESS THAN 3 U/L (15-37); BICARBONATE 29.9 MEQ/L (21.0-32.0); BLOOD UREA NITROGEN 17 MG/DL (7-18); CHLORIDE 101 MEQ/L (98-107); GLOMERULAR FILTRATION RATE 94 ML/MIN (>89); MAGNESIUM 2.5 MG/DL (1.5-2.5); POTASSIUM 4.1 MEQ/L (3.5-5.1); SODIUM (NA) 140 MEQ/L (136-145); TOTAL BILIRUBIN ADULT 0.2 MG/DL (0.2-1.0)
[2016-08-16] MEDS: RESP: ALBUTEROL 2.5 MG/IPRATROPIUM 0.5 MG NEB (SCH) NEB ×3 (08:52→20:00)
[2016-08-16] MEDS: guaiFENesin E.R. 600 MG TAB PO SCH ×2 (08:54→22:46)
[2016-08-16] MEDS: SODIUM CHLORIDE 0.9% FLUSH 5 ML FLUSH FLUSH SCH ×2 (08:54→22:47)
[2016-08-16] MEDS: SERTRALINE HCL 100 MG TAB PO SCH (08:54)
[2016-08-16] MEDS: FAMOTIDINE 20 MG TAB PO SCH ×2 (08:54→22:46)
[2016-08-16] MEDS: metFORMIN HCL 500 MG TAB PO SCH ×2 (08:55→17:53)
[2016-08-16] MEDS: CANAGLIFLOZIN PO SCH (08:59)
[2016-08-16 09:52] LABS: METAMYELOCYTES 1 % (0-1); POLYS (SEG NEUTROPHILS) 87 % (16-70); SCAN/DIFF FINAL DIFF MANUAL; WBC DIFF SAMPLE 100
[2016-08-16 09:53] LABS: PLATELET ESTIMATE SMEAR NORMAL (NORMAL); PLATELET MORPHOLOGY NORMAL (NORMAL)
[2016-08-16] MEDS: SODIUM CHLORIDE 0.9% FLUSH 5 ML FLUSH FLUSH PRN ×2 (11:24→16:26)
--- NOTE | 2016-08-16 12:20 | HHI.PR ---
Subjective Remarks Follow-up pneumonia. Improving shortness of breath but complains of nausea and constant mild right sided chest pain worse with inspiration and coughing. Patient states he has history of pancreatitis and pancreatic mass for EUS. Seen with healthcare surrogate. Discussed with RN Objective Vitals Vital Signs Date Time Temp Pulse Resp B/P Pulse Ox O2 Delivery O2 Flow Rate FiO2 08/16/16 12:00 95.8 63 18 134/87 94 08/16/16 08:50 97 Nasal Cannula 3.00 08/16/16 08:00 95.8 68 18 117/78 94 08/16/16 04:00 96.8 72 16 104/65 93 08/16/16 00:00 96.5 69 16 105/66 93 08/15/16 21:00 3.00 08/15/16 20:00 93 Nasal Cannula 3.00 08/15/16 20:00 96.8 75 17 142/91 94 08/15/16 16:00 97.4 88 18 126/76 96 I/O 08/15/16 08/15/16 08/15/16 08/16/16 08/16/16 08/16/16 07:00 15:00 23:00 07:00 15:00 23:00 Intake Total 360 ml 1280 ml 240 ml 360 ml Output Total 650 ml 700 ml Balance -290 ml 1280 ml 240 ml -340 ml Intake Oral 360 ml 1280 ml 240 ml 360 ml Output Urine Total 650 ml 700 ml # Voids 1 2 # Bowel Movements 0 0 0 Result Diagram: 08/16/16 0711 08/16/16 0711 Objective Remarks GENERAL: Well-developed well-nourished in no distress SKIN: Warm and dry. HEAD: Atraumatic. Normocephalic. EYES: Pupils equal and round. No scleral icterus. No injection or drainage. ENT: No nasal bleeding or discharge. Mucous membranes pink and moist. NECK: Trachea midline. No JVD. CARDIOVASCULAR: Regular rate and rhythm. RESPIRATORY: No accessory muscle use. Improved expiratory wheezes Breath sounds equal bilaterally. GASTROINTESTINAL: Abdomen soft, nondistended. Tender right upper and epigastric areas as well as right chest wall MUSCULOSKELETAL: Extremities without clubbing, cyanosis, or edema. No obvious deformities. NEUROLOGICAL: Awake and alert. No obvious cranial nerve deficits. Motor grossly within normal limits. Five out of 5 muscle strength in the arms and legs. Normal speech. PSYCHIATRIC: Appropriate mood and affect; insight and judgment normal. Procedures none A/P Problem List: (1) PNA (pneumonia) ICD Code: J18.9 Status: Acute (2) COPD (chronic obstructive pulmonary disease) ICD Code: J44.9 Status: Acute (3) Rccpb-5-zhwblamdojx deficiency ICD Code: E88.01 Status: Acute (4) DM (diabetes mellitus) ICD Code: E11.9 Status: Acute (5) HTN (hypertension) ICD Code: I10 Status: Acute Assessment and Plan 41-year-old male with a PMH of Alpha 1 Antitrypsin Deficiency, COPD, O2 Dependent on 3L NC, DM and HTN who presented with SOB Severe sepsis: Secondary to pneumonia as below. Tachycardia and tachypnea. Lactic acid 2.2. Antibiotics as below. Blood cultures with NGTD. IVF. Improving. PNA: CXR w/ RLL consolidation, reviewed. Progressive SOB x2-3 days w/ non- productive cough. Cover for HCAP with IV Zosyn. Urinary antigens negative. Sputum culture primarily growing normal respiratory gillian. Today complained of nausea with recurrence of constant right sided chest pain worse with coughing. Would like to switch to po antibiotic but will hold til am 2/2 nausea COPD: Chronic Respiratory Failure on home O2 secondary to Alpha-1 Antitrypsin deficiency. Presenting w/ Acute Exacerbation. Improving start prednisone dc IV Solu-Medrol. DuoNeb scheduled and as needed. Symbicort, Mucinex. DM: Sliding scale w/ Accu-Cheks. Continue home Metformin, Invokana. Hyperglycemia secondary to steroids HTN: Borderline low in the morning secondary to trazodone. Patient educated. Continue Lisinopril with hold parameters. Monitor BP. Abdominal pain with history of pancreatitis. Tolerating by mouth. Unremarkable CBC, CMP and lipase. Continue pain management. GERD: Continue H2 dereck. DVT Prophylaxis: SCD/Teds. Discharge Planning Possible dc in am Ty Price MD Aug 16, 2016 12:20
[2016-08-16] MEDS: ONDANSETRON HCL 4 MG/2 ML VIAL IVP PRN (16:26)
[2016-08-16] MEDS: traZODone HCL 100 MG TAB PO SCH (22:44)
[2016-08-17] VITALS (9 sets, daily range): BP systolic 94–121; BP diastolic 62–85; PULSE 59–93; RESP 16–18; TEMP 96.3–98.2; O2SAT 91–96
[2016-08-17] MEDS: SODIUM CHLOR 0.9% 1000 ML INJ 1,000 ML IV SCH ×3 (03:32→23:45)
[2016-08-17] MEDS: PIPERACIL-TAZO 4.5 GM PREMIX 100 ML IV SCH ×4 (03:33→20:56)
[2016-08-17] MEDS: ACETAMINOPHEN/HYDROcodone 325 MG/10 MG TAB PO PRN ×5 (03:34→21:44)
[2016-08-17] MEDS: INSULIN ASPART SUPPLEMENTAL SCALE SQ SCH ×4 (05:58→20:55)
[2016-08-17] MEDS: RESP: ALBUTEROL 2.5 MG/IPRATROPIUM 0.5 MG NEB (SCH) NEB ×2 (08:03→12:33)
[2016-08-17] MEDS: SODIUM CHLORIDE 0.9% FLUSH 5 ML FLUSH FLUSH SCH ×2 (08:18→20:57)
[2016-08-17] MEDS: CANAGLIFLOZIN PO SCH (08:19)
[2016-08-17] MEDS: predniSONE 20 MG TAB PO SCH (08:19)
[2016-08-17] MEDS: FAMOTIDINE 20 MG TAB PO SCH ×2 (08:20→20:56)
[2016-08-17] MEDS: metFORMIN HCL 500 MG TAB PO SCH ×2 (08:20→17:47)
[2016-08-17] MEDS: guaiFENesin E.R. 600 MG TAB PO SCH ×2 (08:20→20:56)
[2016-08-17] MEDS: SERTRALINE HCL 100 MG TAB PO SCH (08:20)
--- NOTE | 2016-08-17 11:58 | HHI.PR ---
Subjective Remarks Follow-up pneumonia. Still having pleuritic right sided pain. Noted blood- streaked sputum. Discussed with RN, only saw specks of blood. Discussed with case management Objective Vitals Vital Signs Date Time Temp Pulse Resp B/P Pulse Ox O2 Delivery O2 Flow Rate FiO2 08/17/16 08:03 94 Nasal Cannula 3.00 08/17/16 08:00 96.3 59 16 109/78 96 08/17/16 04:02 96.6 66 18 94/65 95 08/17/16 00:15 96.9 74 18 98/62 94 08/16/16 22:40 Nasal Cannula 3.00 Humidified 08/16/16 20:00 93 Nasal Cannula 3.00 08/16/16 20:00 98.1 94 19 129/86 93 08/16/16 16:00 98.0 92 18 120/73 93 08/16/16 12:00 95.8 63 18 134/87 94 I/O 08/16/16 08/16/16 08/16/16 08/17/16 08/17/16 08/17/16 07:00 15:00 23:00 07:00 15:00 23:00 Intake Total 360 ml 1200 ml 480 ml 727 ml Output Total 700 ml Balance -340 ml 1200 ml 480 ml 727 ml Intake Oral 360 ml 1200 ml 480 ml 240 ml IV Total 487 ml Output Urine Total 700 ml # Voids 2 3 3 # Bowel Movements 0 1 0 0 Result Diagram: 08/16/16 0711 08/16/16 0711 Imaging Last Impressions Chest X-Ray 08/12/162044 Signed Impressions: Service Date/Time: Friday, August 12, 2016 21:25 - CONCLUSION: Minimal area of focal atelectasis or consolidation at the right base. Quan Ruby MD Objective Remarks GENERAL: Well-developed well-nourished in no distress SKIN: Warm and dry. HEAD: Atraumatic. Normocephalic. EYES: Pupils equal and round. No scleral icterus. No injection or drainage. ENT: No nasal bleeding or discharge. Mucous membranes pink and moist. NECK: Trachea midline. No JVD. CARDIOVASCULAR: Regular rate and rhythm. RESPIRATORY: No accessory muscle use. Improved expiratory wheezes Breath sounds equal bilaterally. GASTROINTESTINAL: Abdomen soft, nondistended. Tender right upper and epigastric areas as well as right chest wall MUSCULOSKELETAL: Extremities without clubbing, cyanosis, or edema. No obvious deformities. NEUROLOGICAL: Awake and alert. No obvious cranial nerve deficits. Motor grossly within normal limits. Five out of 5 muscle strength in the arms and legs. Normal speech. PSYCHIATRIC: Appropriate mood and affect; insight and judgment normal. Procedures none A/P Problem List: (1) PNA (pneumonia) ICD Code: J18.9 Status: Acute (2) COPD (chronic obstructive pulmonary disease) ICD Code: J44.9 Status: Acute (3) Dfjye-8-fchdwfbnmfn deficiency ICD Code: E88.01 Status: Acute (4) DM (diabetes mellitus) ICD Code: E11.9 Status: Acute (5) HTN (hypertension) ICD Code: I10 Status: Acute Assessment and Plan 41-year-old male with a PMH of Alpha 1 Antitrypsin Deficiency, COPD, O2 Dependent on 3L NC, DM and HTN who presented with SOB Severe sepsis: Secondary to pneumonia as below. Tachycardia and tachypnea. Lactic acid 2.2. Antibiotics as below. Blood cultures with NGTD. IVF. Improving. PNA: CXR w/ RLL consolidation, reviewed. Progressive SOB x2-3 days w/ non- productive cough. Cover for HCAP with IV Zosyn and switch to Augmentin. Urinary antigens negative. Sputum culture primarily growing normal respiratory gillian. Complained of scant blood-streaked sputum. If not worsening, patient will be discharged today. 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 Presenting w/ Acute Exacerbation. Improving continue prednisone dc IV Solu-Medrol. DuoNeb scheduled and as needed. Symbicort, Mucinex. DM: Sliding scale w/ Accu-Cheks. Continue home Metformin, Invokana. Hyperglycemia secondary to steroids HTN: Borderline low in the morning secondary to trazodone. Patient educated. Continue Lisinopril with hold parameters. Monitor BP. Abdominal pain with history of pancreatitis. Tolerating by mouth. Unremarkable CBC, CMP and lipase. Continue pain management. GERD: Continue H2 dereck. DVT Prophylaxis: SCD/Teds. Discharge Planning Stable for discharge Ty Price MD Aug 17, 2016 11:58
[2016-08-17] MEDS ORDERED: HYDR-3583 PO (12:13)
[2016-08-17] MEDS ORDERED: AUGM875T PO (12:13)
[2016-08-17] MEDS ORDERED: PRED20 PO (12:13)
--- NOTE | 2016-08-17 12:13 | HHI.DCPOC ---
Discharge Care Plan Diagnosis: (1) COPD exacerbation (2) Emtnc-3-zhmtnmecarv deficiency (3) PNA (pneumonia) Your Health Problems Are: Difficulty with ADL Exercise Tolerance Goals to Promote Your Health * To prevent worsening of your condition and complications * To maintain your health at the optimal level Directions to Meet Your Goals Take your medications as prescribed Follow your dietary instruction Follow activity as directed Keep your appointments as scheduled Take your immunizations and boosters as scheduled If your symptoms worsen call your PCP, if no PCP go to Urgent Care Center or Emergency Room Smoking is Dangerous to Your Health. Avoid second hand smoke Call the 24-hour hour crisis hotline for domestic abuse at Ty Price MD Aug 17, 2016 12:13
--- NOTE | 2016-08-17 12:14 | HHI.FF ---
Face to Face Verification Diagnosis: (1) COPD (chronic obstructive pulmonary disease) (2) Ybhmc-1-kjcgvjddxdm deficiency (3) PNA (pneumonia) Home Health Aide Order: To Assist In: Bathing and personal care, hog tender and meal prep I have seen patient Quan Bell on 08/17/16. My clinical findings support the need for the requested home health care services because: Patient has SOB I certify that my clinical findings support that this patient is homebound because: Hx COPD- exertion dyspnea/weakness Ty Price MD Aug 17, 2016 12:14
[2016-08-17] MEDS ORDERED: MUCI600T PO (12:15)
[2016-08-17] MEDS ORDERED: BENZ100 PO (12:16)
[2016-08-17] MEDS: SODIUM CHLORIDE 0.9% FLUSH 5 ML FLUSH FLUSH PRN (14:53)
--- NOTE | 2016-08-17 14:54 | HHI.DS ---
Discharge Summary Admission Date Aug 12, 2016 at 22:47 Discharge Date: Aug 17, 2016 Admitting Diagnosis COPD exacerbation, pneumonia (1) PNA (pneumonia) ICD Code: J18.9 Diagnosis: Principal (2) COPD (chronic obstructive pulmonary disease) ICD Code: J44.9 Diagnosis: Principal (3) Ewzxg-5-rfudpnhofka deficiency ICD Code: E88.01 Diagnosis: Principal (4) DM (diabetes mellitus) ICD Code: E11.9 Diagnosis: Secondary (5) HTN (hypertension) ICD Code: I10 Diagnosis: Secondary Procedures none Brief History - From Admission This is a 41-year-old male with a PMH of Alpha 1 Antitrypsin Deficiency, COPD, O2 Dependent on 3L NC, DM and HTN who was brought to the ER by EMS secondary to c/o SOB. States symptoms have gotten progressively worse over the last 2-3 days. Denies fever or chills. Reports non-productive cough in addition to wheezing. S/p Solu-Medrol 125mg x1 and DuoNeb by EMS w/ some improvement. On arrival, BP 136/79, HR 132, O2 sat 93% on RA, Afebrile. CBC unremarkable. K+ 3.3. Lactic Acid 2.2. BS 267. CXR with minimal area of focal atelectasis or consolidation right base. S/p Blood Cultures, Rocephin/Zithro and Solu-Medrol in ER w/ improvement. CBC/BMP: 08/16/16 0711 08/16/16 0711 Significant Findings Laboratory Tests Test 08/16/16 07:11 Neutrophils (%) (Auto) 85.2 % (16.0-70.0) Lymphocytes # (Auto) 0.7 TH/MM3 (1.0-4.8) Neutrophils % (Manual) 87 % (16-70) Lymphocytes % 8 % (9-44) Random Glucose 161 MG/DL (74-106) Aspartate Amino Transf LESS THAN 3 (AST/SGOT) U/L (15-37) Lipase 41 U/L (73-393) Imaging Last Impressions Chest X-Ray 08/12/162044 Signed Impressions: Service Date/Time: Friday, August 12, 2016 21:25 - CONCLUSION: Minimal area of focal atelectasis or consolidation at the right base. Quan Ruby MD PE at Discharge GENERAL: Well-developed well-nourished in no distress SKIN: Warm and dry. HEAD: Atraumatic. Normocephalic. EYES: Pupils equal and round. No scleral icterus. No injection or drainage. ENT: No nasal bleeding or discharge. Mucous membranes pink and moist. NECK: Trachea midline. No JVD. CARDIOVASCULAR: Regular rate and rhythm. RESPIRATORY: No accessory muscle use. Improved expiratory wheezes Breath sounds equal bilaterally. GASTROINTESTINAL: Abdomen soft, nondistended. Tender right upper and epigastric areas as well as right chest wall MUSCULOSKELETAL: Extremities without clubbing, cyanosis, or edema. No obvious deformities. NEUROLOGICAL: Awake and alert. No obvious cranial nerve deficits. Motor grossly within normal limits. Five out of 5 muscle strength in the arms and legs. Normal speech. PSYCHIATRIC: Appropriate mood and affect; insight and judgment normal. Hospital Course 41-year-old male with a PMH of Alpha 1 Antitrypsin Deficiency, COPD, O2 Dependent on 3L NC, DM and HTN who presented with SOB Severe sepsis: Secondary to pneumonia as below. Tachycardia and tachypnea. Lactic acid 2.2. Antibiotics as below. Blood cultures with NGTD. IVF. Improving. PNA: CXR w/ RLL consolidation, reviewed. Progressive SOB x2-3 days w/ non- productive cough. Cover for HCAP with IV Zosyn and switch to Augmentin. Urinary antigens negative. Sputum culture primarily growing normal respiratory gillian. Complained of scant blood-streaked sputum. If not worsening, patient will be discharged today. Patient states his welt maker is planning to do bronchoscopy COPD: Chronic Respiratory Failure on home O2 secondary to Alpha-1 Antitrypsin deficiency. Presenting w/ Acute Exacerbation. Improving continue prednisone dc IV Solu-Medrol. DuoNeb scheduled and as needed. Symbicort, Mucinex. DM: Sliding scale w/ Accu-Cheks. Continue home Metformin, Invokana. Hyperglycemia secondary to steroids HTN: Borderline low in the morning secondary to trazodone. Patient educated. Continue Lisinopril with hold parameters. Monitor BP. Abdominal pain with history of pancreatitis. Tolerating by mouth. Unremarkable CBC, CMP and lipase. Continue pain management. GERD: Continue H2 dereck. DVT Prophylaxis: SCD/Teds. Pt Condition on Discharge: Stable Discharge Disposition: Disch w/ Home Health Serv Discharge Time: <= 30 minutes Discharge Instructions DIET: Follow Instructions for: Heart Healthy Diet, Diabetic Diet Activities you can perform: Regular-No Restrictions Activities to Avoid: Driving Follow up Referrals: Gastroenterology - 1 Week PCP Follow-up - 1 Week Pulmonology - 1 Week New Orders: X-RAY CHEST PA & LAT - 6 Weeks New Medications: Amoxicillin-Clavulanate (Augmentin) 875-125 mg Tab 875 MG PO BID not for use in CrCl <30 ml/min. Infection #16 Ref 0 TAB Benzonatate (Tessalon Perles) 100 Mg Cap 200 MG PO TID PRN COUGH #60 Ref 0 CAP Guaifenesin ER 12 HR (Mucinex ER 12 HR) 600 Mg Anne Marie 600 MG PO BID cough #30 TAB Hydrocodone-Acetaminophen (Hydrocodone-Acetaminophen) 10-325 mg Tab 1 TAB PO Q6HR PRN PAIN SCALE 6 TO 10 #28 TAB Prednisone (Prednisone) 20 Mg Tab 40 MG PO DAILY Take 2 pills daily for 3 Days, then one daily for 3 days, then half a pill a day for 3 Days. Control Inflammation #11 TAB Continued Medications: Albuterol 18 GM Inh (Ventolin Hfa 18 GM Inh) 90 Mcg/Act Aer 2 PUFF INH Q4-6H PRN SHORTNESS OF BREATH #1 Ref 0 INHALER Albuterol Neb (Albuterol Neb) 2.5 Mg/3 Ml Neb 2.5 MG NEB Q4HR NEB While awake Breathing Treatment #60 Ref 0 NEBULE Canagliflozin (Invokana) 300 Mg Tab 500 MG PO DAILY Take before 1st meal of day. Blood Sugar Management #30 Ref 0 TAB Metformin (Metformin) 500 Mg Tab 500 MG PO BIDPC With meals Blood Sugar Management #60 Ref 0 TAB Pantoprazole (Pantoprazole) 40 Mg Tab 40 MG PO DAILY Reflux #30 Ref 0 TAB Sertraline (Zoloft) 100 Mg Tab 200 MG PO DAILY #30 Ref 0 TAB Trazodone (Trazodone) 100 Mg Tab 250 MG PO HS Control Depression #30 Ref 0 TAB ([o2]) 3 LITER DEV.CANULA DAILY Ty Price MD Aug 17, 2016 14:54
--- NOTE | 2016-08-17 18:19 | EKG ---
Date Performed: 08/16/2016 Time Performed: 12:54:33 PTAGE: 41 years EKG: Sinus rhythm When compared to previous tracing, sinus rate is slower. NORMAL ECG PREVIOUS TRACING : 08/12/2016 21.02 DOCTOR: Ab Escalante Interpretating Date/Time 08/17/2016 18:19:00
[2016-08-17] MEDS: traZODone HCL 100 MG TAB PO SCH (20:56)
[2016-08-18] VITALS (7 sets, daily range): BP systolic 98–132; BP diastolic 56–86; PULSE 63–81; RESP 16–18; TEMP 96.1–97.5; O2SAT 95–97
[2016-08-18] MEDS: ACETAMINOPHEN/HYDROcodone 325 MG/10 MG TAB PO PRN ×5 (03:20→20:48)
[2016-08-18] MEDS: PIPERACIL-TAZO 4.5 GM PREMIX 100 ML IV SCH ×4 (03:20→20:46)
[2016-08-18] MEDS: INSULIN ASPART SUPPLEMENTAL SCALE SQ SCH ×3 (06:17→20:47)
[2016-08-18] MEDS: guaiFENesin E.R. 600 MG TAB PO SCH ×2 (07:59→20:47)
[2016-08-18] MEDS: SERTRALINE HCL 100 MG TAB PO SCH (08:00)
[2016-08-18] MEDS: FAMOTIDINE 20 MG TAB PO SCH ×2 (08:00→20:47)
[2016-08-18] MEDS: predniSONE 20 MG TAB PO SCH (08:00)
[2016-08-18] MEDS: metFORMIN HCL 500 MG TAB PO SCH ×2 (08:01→16:27)
--- NOTE | 2016-08-18 13:03 | HHI.PR ---
Subjective Remarks F/u PNA. Increased hemoptysis about 30 ml this am no SOB dw RN and Pulmonary Objective Vitals Vital Signs Date Time Temp Pulse Resp B/P Pulse Ox O2 Delivery O2 Flow Rate FiO2 08/18/16 08:00 96.6 70 16 111/73 97 08/18/16 07:20 Nasal Cannula 3.00 08/18/16 04:15 96.4 63 18 100/58 96 08/18/16 00:00 96.8 66 18 98/56 96 08/17/16 20:20 80 08/17/16 20:05 98.2 78 18 118/85 94 08/17/16 20:00 Nasal Cannula 3.00 Humidified 08/17/16 19:46 91 Nasal Cannula 3.00 08/17/16 16:00 97.8 84 18 112/79 96 08/17/16 15:55 Nasal Cannula 3.00 I/O 08/17/16 08/17/16 08/17/16 08/18/16 08/18/16 08/18/16 07:00 15:00 23:00 07:00 15:00 23:00 Intake Total 727 ml 1200 ml 240 ml 1974 ml Output Total 700 ml 950 ml Balance 727 ml 1200 ml -460 ml 1024 ml Intake Oral 240 ml 1200 ml 240 ml 120 ml IV Total 487 ml 1854 ml Output Urine Total 700 ml 950 ml # Voids 3 3 1 # Bowel Movements 0 1 0 0 Result Diagram: 08/16/1671008/16/16 0711 Objective Remarks GENERAL: Well-developed well-nourished in no distress SKIN: Warm and dry. HEAD: Atraumatic. Normocephalic. EYES: Pupils equal and round. No scleral icterus. No injection or drainage. ENT: No nasal bleeding or discharge. Mucous membranes pink and moist. No oral bleeding NECK: Trachea midline. No JVD. CARDIOVASCULAR: Regular rate and rhythm. RESPIRATORY: No accessory muscle use. Improved expiratory wheezes Breath sounds equal bilaterally. GASTROINTESTINAL: Abdomen soft, nondistended. Tender right upper and epigastric areas as well as right chest wall MUSCULOSKELETAL: Extremities without clubbing, cyanosis, or edema. No obvious deformities. NEUROLOGICAL: Awake and alert. No obvious cranial nerve deficits. Motor grossly within normal limits. Five out of 5 muscle strength in the arms and legs. Normal speech. PSYCHIATRIC: Appropriate mood and affect; insight and judgment normal. Procedures none A/P Problem List: (1) PNA (pneumonia) ICD Code: J18.9 Status: Acute (2) COPD (chronic obstructive pulmonary disease) ICD Code: J44.9 Status: Acute (3) Xahkn-8-ujzneekkfud deficiency ICD Code: E88.01 Status: Acute (4) DM (diabetes mellitus) ICD Code: E11.9 Status: Acute (5) HTN (hypertension) ICD Code: I10 Status: Acute Assessment and Plan 41-year-old male with a PMH of Alpha 1 Antitrypsin Deficiency, COPD, O2 Dependent on 3L NC, DM and HTN who presented with SOB Severe sepsis: Secondary to pneumonia as below. Tachycardia and tachypnea. Lactic acid 2.2. Antibiotics as below. Blood cultures with NGTD. IVF. Improving. PNA: CXR w/ RLL consolidation, reviewed. Progressive SOB x2-3 days w/ non- productive cough. Cover for HCAP with IV Zosyn and switch to Augmentin. Urinary antigens negative. Sputum culture primarily growing normal respiratory gillian. Increased hemoptysis about 30 ml this am no SOB dw RN and Pulmonary. Stat CBC, BMP, coags and chest CT. NPO til seen by Pulmo. Obtain previous CT COPD: Chronic Respiratory Failure on home O2 secondary to Alpha-1 Antitrypsin deficiency. Presenting w/ Acute Exacerbation. Improving continue prednisone dc IV Solu-Medrol. DuoNeb scheduled and as needed. Symbicort, Mucinex. DM: Sliding scale w/ Accu-Cheks. Continue home Metformin, Invokana. Hyperglycemia secondary to steroids HTN: Borderline low in the morning secondary to trazodone. Patient educated. Continue Lisinopril with hold parameters. Monitor BP. Abdominal pain with history of pancreatitis. Tolerating by mouth. Unremarkable CBC, CMP and lipase. Continue pain management. GERD: Continue H2 dereck. FEN. IVF and po DVT Prophylaxis: SCD/Teds. Discharge Planning Not ready for discharge with worsening hemoptysis Ty Price MD Aug 18, 2016 13:03
--- NOTE | 2016-08-18 14:49 | RADRPT ---
EXAM DATE/TIME: 08/18/2016 14:32 [facility] COMPARISON: No previous studies available for comparison. INDICATIONS : Hemoptysis. RADIATION DOSE: 5.89 CTDIvol (mGy) MEDICAL HISTORY : Hypertension. Chronic obstructive pulmonary disease. Diabetes mellitus type 2. Pancreatitis. SURGICAL HISTORY : None. ENCOUNTER: Initial ACUITY: 1 day PAIN SCALE: 0/10 LOCATION: Bilateral chest TECHNIQUE: Volumetric scanning of the chest was performed. Using automated exposure control and adjustment of t he mA and/or kV according to patient size, radiation dose was kept as low as reasonably achievable to obtain optimal diagnostic quality images. FINDINGS: LUNGS: Linear atelectasis versus scarring is seen within the superior segment of the right lower lobe. Emphy sematous changes noted bilaterally slightly asymmetric to the right. No mass or infiltrate. PLEURAE: A 2.6 x 1.1 cm pleural based nodule is seen involving the posterior basilar segment of the right lowe r lobe. There is smoothly marginated. No other nodules. No effusions. MEDIASTINUM: There is a Bochdalek hernia seen on the left containing fat. A tiny pericardial effusion. The heart i s normal in size. No mass or adenopathy. Mild coronary artery atherosclerotic calcifications. Aorta a nd pulmonary arteries are normal in caliber AXILLAE: Within normal limits. No lymphadenopathy. MUSCULOSKELETAL: Within normal limits for patient age. MISCELLANEOUS: The visualized upper abdominal organs demonstrate no acute abnormality. CONCLUSION: 1. Emphysematous changes. 2. 2.6 x 1.1 cm pleural based nodule involving the right lung base. No prior exams for comparison. Th is may simple be postinflammatory in nature. I cannot exclude other etiologies at this point. A [facility] of the thorax is suggested in 3-6 months. 3. Left sided Bochdalek hernia containing fat. 4. Mild coronary artery atherosclerotic calcifications. Andrez Narvaez Jr., MD on August 18, 2016 at 14:41 Board Certified Radiologist. This report was verified electronically.
[2016-08-18 16:33] LABS: AUTOMATED NEUTROPHIL # 5.4 TH/MM3 (1.8-7.7); BASOPHIL % 0.3 % (0.0-2.0); EOSINOPHIL % 0.2 % (0.0-4.0); HEMATOCRIT 41.6 % (39.0-51.0); LYMPH % 10.8 % (9.0-44.0); LYMPHOCYTE # 0.7 TH/MM3 (1.0-4.8); MEAN CELL VOLUME 82.3 FL (80.0-100.0); MEAN CORPUSCULAR HEMOGLOBIN 27.9 PG (27.0-34.0); MEAN CORPUSCULAR HGB CONC 33.9 % (32.0-36.0); MONO % 4.4 % (0.0-8.0); NEUT % 84.3 % (16.0-70.0); PLATELET COUNT 193 TH/MM3 (150-450); RED BLOOD COUNT 5.06 MIL/MM3 (4.50-5.90); WHITE BLOOD COUNT 6.4 TH/MM3 (4.0-11.0)
[2016-08-18 16:39] LABS: HEMO FLAGS AUTO DIFF
[2016-08-18 16:55] LABS: APTT (PATIENT) 27.5 SEC (24.3-30.1); PROTHROMBIN TIME - PATIENT 10.8 SEC (9.8-11.6)
[2016-08-18 16:56] LABS: BICARBONATE 29.6 MEQ/L (21.0-32.0); MAGNESIUM 2.2 MG/DL (1.5-2.5)
[2016-08-18 17:51] LABS: BANDS 3 % (0-6); METAMYELOCYTES 1 % (0-1); MYELOCYTES 1 % (0-0); NEUTROPHIL # MANUAL DIFF 5.6 TH/MM3 (1.8-7.7); POLYS (SEG NEUTROPHILS) 83 % (16-70); WBC DIFF SAMPLE 100
[2016-08-18 17:52] LABS: PLATELET ESTIMATE SMEAR NORMAL (NORMAL); PLATELET MORPHOLOGY NORMAL (NORMAL); SCAN/DIFF FINAL DIFF MANUAL
[2016-08-18] MEDS: SODIUM CHLOR 0.9% 1000 ML INJ 1,000 ML IV SCH (19:45)
[2016-08-18] MEDS: SODIUM CHLORIDE 0.9% FLUSH 5 ML FLUSH FLUSH SCH (20:45)
[2016-08-18] MEDS: traZODone HCL 100 MG TAB PO SCH (20:46)
[2016-08-19] VITALS (8 sets, daily range): BP systolic 99–135; BP diastolic 53–82; PULSE 62–102; RESP 16–18; TEMP 96–98.8; O2SAT 94–97
[2016-08-19] MEDS: ACETAMINOPHEN/HYDROcodone 325 MG/10 MG TAB PO PRN ×6 (01:01→22:33)
[2016-08-19] MEDS: PIPERACIL-TAZO 4.5 GM PREMIX 100 ML IV SCH ×2 (03:40→09:19)
[2016-08-19] MEDS: SODIUM CHLOR 0.9% 1000 ML INJ 1,000 ML IV SCH ×2 (05:45→15:45)
[2016-08-19] MEDS: INSULIN ASPART SUPPLEMENTAL SCALE SQ SCH ×4 (06:09→21:00)
[2016-08-19 06:43] LABS: BASOPHIL % 0.3 % (0.0-2.0); EOSINOPHIL # 0.1 TH/MM3 (0-0.4); EOSINOPHIL % 1.1 % (0.0-4.0); LYMPH % 25.6 % (9.0-44.0); LYMPHOCYTE # 1.6 TH/MM3 (1.0-4.8); MEAN CORPUSCULAR HEMOGLOBIN 28.3 PG (27.0-34.0); MEAN CORPUSCULAR HGB CONC 34.1 % (32.0-36.0); MONO % 8.2 % (0.0-8.0); NEUT % 64.8 % (16.0-70.0); PLATELET COUNT 180 TH/MM3 (150-450); RED BLOOD COUNT 4.82 MIL/MM3 (4.50-5.90); RED CELL DISTRIBUTION WIDTH 13.1 % (11.6-17.2); WHITE BLOOD COUNT 6.1 TH/MM3 (4.0-11.0)
[2016-08-19 07:04] LABS: BICARBONATE 33.6 MEQ/L (21.0-32.0); MAGNESIUM 2.4 MG/DL (1.5-2.5)
[2016-08-19 07:06] LABS: POTASSIUM 4.3 MEQ/L (3.5-5.1)
[2016-08-19 07:23] LABS: HEMO FLAGS AUTO DIFF
[2016-08-19] MEDS: CANAGLIFLOZIN PO SCH (09:00)
--- NOTE | 2016-08-19 09:08 | MB ---
cc: LEANNA DAVIDSON JOSE R. MD DATE OF CONSULTATION: 08/18/2016 REASON FOR CONSULTATION Evaluation of hemoptysis. HISTORY OF PRESENT ILLNESS Mr. Bell is a 41-year-old male with a history of COPD and alpha-1 antitrypsin deficiency, not on iron replacement therapy, follows with Dr. Ansari. He came to the hospital with shortness of breath. While in the hospital he had an episode of hemoptysis. He coughed up bright red blood. He does admit that he had two or three episodes over the last six months, but he did not seek any medical attention for that. He had a work-up done. His CT scan of the chest shows he has emphysematous changes in the lung with pleural based nodule involving the right lung base measuring 2.6 x 1.1 cm, possible post inflammatory process. His CBC showed WBC count 6.4, hemoglobin 14.4, hematocrit 41.6, MCV 82, platelet count 193. Sodium 139, potassium 4.0, chloride 102, CO2 29, BUN 16, creatinine 0.81. INR 1.0. PAST MEDICAL HISTORY 1. Hypertension. 2. COPD. 3. Alpha-1 antitrypsin deficiency. 4. Chronic pancreatitis. MEDICATIONS He is currently takin. Prednisone 40 mg a day. 2. Trazodone 250 mg at nighttime. 3. Mucinex 600 mg twice a day. 4. Metformin 500 mg twice a day. 5. Famotidine 20 mg a day. 6. Zosyn IV. 7. Albuterol/Atrovent nebulizer treatment. ALLERGIES No known drug allergies. SOCIAL HISTORY He is single, , lives with a roommate. He has a long history of smoking up to three packs a day which he quit last year. He also used to drink heavily which he quit last year. Denies any drug use. He worked as an journeyman electrician. He initially quit working and was taking care of his parents both of whom have . He had his alcohol problem and was in the rehab. FAMILY HISTORY He has three children. REVIEW OF SYSTEMS Normally he is up, around and active. Weight is stable. No DVT or pulmonary embolism. No seizure, stroke or epilepsy. PHYSICAL EXAMINATION GENERAL: A well-built, well-nourished male, not in acute distress. VITAL SIGNS: Blood pressure 132/86, heart rate 76, respirations 17, temperature 97.2. HEENT: Pupils are equal and reactive to light. Oral mucosa and nasal mucosa are normal. NECK: Supple. JVP not raised. CHEST: Equal air entry. He has expiratory rhonchi. CARDIOVASCULAR: S1, S2 normal. ABDOMEN: Benign. EXTREMITIES: No edema. IMPRESSION 1. Hemoptysis. 2. Bronchitis. 3. COPD. 4. Alpha-1 antitrypsin deficiency. 5. Right lower lobe nodular density versus infiltrate. 6. Chronic pancreatitis. PLAN I discussed with the patient. Will give him steroids, antibiotics and aerosol treatment. He will need a bronchoscopy. I explained the procedure and the complications including complication of anesthesia, pneumothorax requiring a chest tube, bleeding complication, injury to the blood vessels, lungs and nerves, arrhythmia, need for ventilator support. He understood and was willing to proceed. Will schedule him for bronchoscopy. Further treatment will depend on the course in the hospital. Thank you Dr. Price for this consult. MD MACY Morris/BT /5:51 PM /8:37 AM
[2016-08-19] MEDS: FAMOTIDINE 20 MG TAB PO SCH ×2 (09:12→21:28)
[2016-08-19] MEDS: guaiFENesin E.R. 600 MG TAB PO SCH ×2 (09:12→21:28)
[2016-08-19] MEDS: SERTRALINE HCL 100 MG TAB PO SCH (09:12)
[2016-08-19] MEDS: metFORMIN HCL 500 MG TAB PO SCH ×2 (09:12→18:21)
[2016-08-19] MEDS: predniSONE 20 MG TAB PO SCH (09:12)
[2016-08-19] MEDS: SODIUM CHLORIDE 0.9% FLUSH 5 ML FLUSH FLUSH SCH ×2 (09:19→21:28)
[2016-08-19 09:42] LABS: BANDS 5 % (0-6); METAMYELOCYTES 1 % (0-1); MYELOCYTES 1 % (0-0); POLYS (SEG NEUTROPHILS) 59 % (16-70); WBC DIFF SAMPLE 100
[2016-08-19 09:43] LABS: PLATELET ESTIMATE SMEAR NORMAL (NORMAL); PLATELET MORPHOLOGY NORMAL (NORMAL); SCAN/DIFF FINAL DIFF MANUAL
--- NOTE | 2016-08-19 13:57 | HHI.PR ---
Subjective Remarks Follow-up hemoptysis. No hemoptysis today scheduled for bronchoscopy on Sunday by pulmonary. Discussed with RN Objective Vitals Vital Signs Date Time Temp Pulse Resp B/P Pulse Ox O2 Delivery O2 Flow Rate FiO2 08/19/16 11:32 96.9 79 18 111/70 95 08/19/16 09:25 97 Nasal Cannula 3.00 Humidified 08/19/16 08:27 97 Nasal Cannula 3.00 08/19/16 08:27 62 08/19/16 08:26 62 08/19/16 07:52 96.0 62 18 102/65 97 08/19/16 03:56 98.1 73 16 99/63 96 08/19/16 00:05 97.9 67 16 100/53 97 08/18/16 20:01 97.5 80 16 130/84 97 08/18/16 20:00 81 08/18/16 20:00 97 Nasal Cannula 3.00 08/18/16 18:01 96.1 78 16 109/72 97 I/O 08/18/16 08/18/16 08/18/16 08/19/16 08/19/16 08/19/16 07:00 15:00 23:00 07:00 15:00 23:00 Intake Total 1974 ml 240 ml 720 ml 360 ml Output Total 950 ml 200 ml Balance 1024 ml 40 ml 720 ml 360 ml Intake Oral 120 ml 240 ml 720 ml 360 ml IV Total 1854 ml Output Urine Total 950 ml 200 ml # Voids 3 2 2 # Bowel Movements 0 1 Result Diagram: 08/19/16 0520 08/19/16 0520 Objective Remarks GENERAL: Well-developed well-nourished in no distress SKIN: Warm and dry. HEAD: Atraumatic. Normocephalic. EYES: Pupils equal and round. No scleral icterus. No injection or drainage. ENT: No nasal bleeding or discharge. Mucous membranes pink and moist. No oral bleeding NECK: Trachea midline. No JVD. CARDIOVASCULAR: Regular rate and rhythm. RESPIRATORY: No accessory muscle use. Improved no expiratory wheezes Breath sounds equal bilaterally. GASTROINTESTINAL: Abdomen soft, nondistended. Tender right upper and epigastric areas as well as right chest wall MUSCULOSKELETAL: Extremities without clubbing, cyanosis, or edema. No obvious deformities. NEUROLOGICAL: Awake and alert. No obvious cranial nerve deficits. Motor grossly within normal limits. Five out of 5 muscle strength in the arms and legs. Normal speech. PSYCHIATRIC: Appropriate mood and affect; insight and judgment normal. Procedures none A/P Problem List: (1) PNA (pneumonia) ICD Code: J18.9 Status: Acute (2) COPD (chronic obstructive pulmonary disease) ICD Code: J44.9 Status: Acute (3) Nvmis-0-tkdnlcramau deficiency ICD Code: E88.01 Status: Acute (4) DM (diabetes mellitus) ICD Code: E11.9 Status: Acute (5) HTN (hypertension) ICD Code: I10 Status: Acute Assessment and Plan 41-year-old male with a PMH of Alpha 1 Antitrypsin Deficiency, COPD, O2 Dependent on 3L NC, DM and HTN who presented with SOB Severe sepsis: Secondary to pneumonia as below. Tachycardia and tachypnea. Lactic acid 2.2. Antibiotics as below. Blood cultures with NGTD. IVF. Improved PNA: CXR w/ RLL consolidation, reviewed. Progressive SOB x2-3 days w/ non- productive cough. Cover for HCAP with IV Zosyn and switch to Augmentin. Urinary antigens negative. Sputum culture primarily growing normal respiratory gillian. Increased hemoptysis for bronchoscopy this Sunday Pulmonary. Stable labs. CT results discussed with the patient COPD: Chronic Respiratory Failure on home O2 secondary to Alpha-1 Antitrypsin deficiency. Presenting w/ Acute Exacerbation. Improving continue prednisone dc IV Solu-Medrol. DuoNeb scheduled and as needed. Symbicort, Mucinex. Improving continue by mouth steroids DM: Sliding scale w/ Accu-Cheks. Continue home Metformin, Invokana. Hyperglycemia secondary to steroids HTN: Borderline low in the morning secondary to trazodone. Patient educated. Continue Lisinopril with hold parameters. Monitor BP. Abdominal pain with history of pancreatitis. Tolerating by mouth. Unremarkable CBC, CMP and lipase. Continue pain management. GERD: Continue H2 dereck. FEN. IVF and po DVT Prophylaxis: SCD/Teds. Discharge Planning Not ready for discharge with worsening hemoptysis Ty Price MD Aug 19, 2016 13:57
[2016-08-19] MEDS: traZODone HCL 100 MG TAB PO SCH (21:28)
[2016-08-19] MEDS: AMOXICILLIN/CLAVULANATE K 875 MG TAB PO SCH (21:29)
[2016-08-20] VITALS (8 sets, daily range): BP systolic 101–132; BP diastolic 65–85; PULSE 71–105; RESP 16–18; TEMP 96.6–98.1; O2SAT 93–98
[2016-08-20] MEDS: SODIUM CHLOR 0.9% 1000 ML INJ 1,000 ML IV SCH ×3 (01:45→21:09)
[2016-08-20] MEDS: ACETAMINOPHEN/HYDROcodone 325 MG/10 MG TAB PO PRN ×5 (03:50→21:08)
[2016-08-20] MEDS: INSULIN ASPART SUPPLEMENTAL SCALE SQ SCH ×4 (06:12→21:08)
[2016-08-20] MEDS: AMOXICILLIN/CLAVULANATE K 875 MG TAB PO SCH ×2 (08:11→21:08)
[2016-08-20] MEDS: metFORMIN HCL 500 MG TAB PO SCH ×2 (08:11→17:21)
[2016-08-20] MEDS: predniSONE 20 MG TAB PO SCH (08:11)
[2016-08-20] MEDS: SERTRALINE HCL 100 MG TAB PO SCH (08:11)
[2016-08-20] MEDS: guaiFENesin E.R. 600 MG TAB PO SCH ×2 (08:11→21:08)
[2016-08-20] MEDS: FAMOTIDINE 20 MG TAB PO SCH ×2 (08:11→21:08)
[2016-08-20] MEDS: CANAGLIFLOZIN PO SCH (08:15)
[2016-08-20] MEDS: SODIUM CHLORIDE 0.9% FLUSH 5 ML FLUSH FLUSH SCH ×2 (08:18→21:08)
--- NOTE | 2016-08-20 10:54 | HHI.PR ---
Subjective Remarks Follow-up hemoptysis. Continues to have intermittent hemoptysis. Decreasing in volume. Denies shortness of breath. Discussed with RN Objective Vitals Vital Signs Date Time Temp Pulse Resp B/P Pulse Ox O2 Delivery O2 Flow Rate FiO2 08/20/16 08:02 96 Nasal Cannula 3.00 08/20/16 08:00 96.6 71 18 101/66 96 08/20/16 05:01 90 08/20/16 04:00 97.3 73 16 102/65 98 08/20/16 00:00 96.9 72 16 110/72 95 08/19/16 22:52 3.00 08/19/16 20:05 98.8 93 16 135/80 94 08/19/16 15:55 97.3 102 18 122/82 97 08/19/16 11:32 96.9 79 18 111/70 95 I/O 08/19/16 08/19/16 08/19/16 08/20/16 08/20/16 08/20/16 07:00 15:00 23:00 07:00 15:00 23:00 Intake Total 360 ml 960 ml 720 ml 720 ml Balance 360 ml 960 ml 720 ml 720 ml Intake Oral 360 ml 960 ml 720 ml 720 ml # Voids 2 4 2 2 # Bowel Movements 0 1 Result Diagram: 08/19/1651908/19/16519 Objective Remarks GENERAL: Well-developed well-nourished in no distress SKIN: Warm and dry. HEAD: Atraumatic. Normocephalic. EYES: Pupils equal and round. No scleral icterus. No injection or drainage. ENT: No nasal bleeding or discharge. Mucous membranes pink and moist. No oral bleeding NECK: Trachea midline. No JVD. CARDIOVASCULAR: Regular rate and rhythm. RESPIRATORY: No accessory muscle use. Improved no expiratory wheezes Breath sounds equal bilaterally. GASTROINTESTINAL: Abdomen soft, nondistended. Tender right upper and epigastric areas as well as right chest wall MUSCULOSKELETAL: Extremities without clubbing, cyanosis, or edema. No obvious deformities. NEUROLOGICAL: Awake and alert. No obvious cranial nerve deficits. Motor grossly within normal limits. Five out of 5 muscle strength in the arms and legs. Normal speech. PSYCHIATRIC: Appropriate mood and affect; insight and judgment normal. Procedures none A/P Problem List: (1) PNA (pneumonia) ICD Code: J18.9 Status: Acute (2) COPD (chronic obstructive pulmonary disease) ICD Code: J44.9 Status: Acute (3) Mtykb-5-rdzvumlfzit deficiency ICD Code: E88.01 Status: Acute (4) DM (diabetes mellitus) ICD Code: E11.9 Status: Acute (5) HTN (hypertension) ICD Code: I10 Status: Acute Assessment and Plan 41-year-old male with a PMH of Alpha 1 Antitrypsin Deficiency, COPD, O2 Dependent on 3L NC, DM and HTN who presented with SOB Severe sepsis: Secondary to pneumonia as below. Tachycardia and tachypnea. Lactic acid 2.2. Antibiotics as below. Blood cultures with NGTD. IVF. Improved PNA: CXR w/ RLL consolidation, reviewed. Progressive SOB x2-3 days w/ non- productive cough. Cover for HCAP with IV Zosyn and switch to Augmentin. Urinary antigens negative. Sputum culture primarily growing normal respiratory gillian. Intermittent hemoptysis for bronchoscopy tomorrow by Pulmonary. Stable labs. CT results discussed with the patient COPD: Chronic Respiratory Failure on home O2 secondary to Alpha-1 Antitrypsin deficiency. Presenting w/ Acute Exacerbation. Improving continue prednisone dc IV Solu-Medrol. DuoNeb scheduled and as needed. Symbicort, Mucinex. Improving continue by mouth steroids DM: Sliding scale w/ Accu-Cheks. Continue home Metformin, Invokana. Hyperglycemia secondary to steroids HTN: Borderline low in the morning secondary to trazodone. Patient educated. Continue Lisinopril with hold parameters. Monitor BP. Abdominal pain with history of pancreatitis. Tolerating by mouth. Unremarkable CBC, CMP and lipase. Continue pain management. GERD: Continue H2 dereck. FEN. IVF and po DVT Prophylaxis: SCD/Teds. Discharge Planning Not ready for discharge with ongoing hemoptysis Ty Price MD Aug 20, 2016 10:54
[2016-08-20] MEDS: traZODone HCL 100 MG TAB PO SCH (21:08)
[2016-08-21] VITALS (7 sets, daily range): BP systolic 93–123; BP diastolic 59–77; PULSE 67–86; RESP 16–17; TEMP 96.5–96.9; O2SAT 92–96
[2016-08-21] MEDS: ACETAMINOPHEN/HYDROcodone 325 MG/10 MG TAB PO PRN ×5 (01:21→21:19)
[2016-08-21] MEDS: INSULIN ASPART SUPPLEMENTAL SCALE SQ SCH ×4 (06:04→21:19)
[2016-08-21] MEDS: SODIUM CHLOR 0.9% 1000 ML INJ 1,000 ML IV SCH ×2 (07:45→12:45)
[2016-08-21] MEDS: FAMOTIDINE 20 MG TAB PO SCH ×2 (08:39→21:19)
[2016-08-21] MEDS: predniSONE 20 MG TAB PO SCH (08:39)
[2016-08-21] MEDS: guaiFENesin E.R. 600 MG TAB PO SCH ×2 (08:39→21:20)
[2016-08-21] MEDS: AMOXICILLIN/CLAVULANATE K 875 MG TAB PO SCH ×2 (08:39→21:20)
[2016-08-21] MEDS: SODIUM CHLORIDE 0.9% FLUSH 5 ML FLUSH FLUSH SCH ×2 (08:40→21:20)
[2016-08-21] MEDS: metFORMIN HCL 500 MG TAB PO SCH ×2 (08:40→18:00)
[2016-08-21] MEDS: CANAGLIFLOZIN PO SCH (08:40)
[2016-08-21] MEDS: SERTRALINE HCL 100 MG TAB PO SCH (08:40)
[2016-08-21] MEDS ORDERED: PROPOFOL 200 MG/20 ML AMP IV ONE (12:00)
[2016-08-21] MEDS ORDERED: ONDANSETRON HCL 4 MG/2 ML VIAL IV PUSH ONE (12:00)
[2016-08-21] MEDS ORDERED: PHENYLEPH/NS 1000 MCG/10 ML SYR IV ONE (12:00)
[2016-08-21] MEDS ORDERED: ePHEDrine/NS 25 MG/5 ML SYR IV ONE (12:00)
--- NOTE | 2016-08-21 12:18 | HHI.PR ---
Subjective Remarks Follow-up hemoptysis. No recurrence today awaiting bronchoscopy. Discussed with RN, if no hemoptysis and negative bronchoscopy he might be discharged home pending pulmonary clearance. Patient states he is working on patient assistance. Objective Vitals Vital Signs Date Time Temp Pulse Resp B/P Pulse Ox O2 Delivery O2 Flow Rate FiO2 08/21/16 07:52 96.9 68 17 107/65 96 08/21/16 07:14 Nasal Cannula 3.00 08/21/16 04:00 96.9 67 16 102/66 96 08/21/16 00:00 96.5 74 17 93/59 94 08/20/16 21:28 87 08/20/16 20:00 97.3 91 16 109/74 93 08/20/16 16:00 97.9 105 18 132/85 97 I/O 08/20/16 08/20/16 08/20/16 08/21/16 08/21/16 08/21/16 07:00 15:00 23:00 07:00 15:00 23:00 Intake Total 720 ml 600 ml 240 ml 260 ml Balance 720 ml 600 ml 240 ml 260 ml Intake Oral 720 ml 600 ml 240 ml 0 ml IV Total 260 ml # Voids 2 3 1 1 # Bowel Movements 0 0 0 Result Diagram: 08/19/1651908/19/16 0520 Objective Remarks GENERAL: Well-developed well-nourished in no distress SKIN: Warm and dry. HEAD: Atraumatic. Normocephalic. EYES: Pupils equal and round. No scleral icterus. No injection or drainage. ENT: No nasal bleeding or discharge. Mucous membranes pink and moist. No oral bleeding NECK: Trachea midline. No JVD. CARDIOVASCULAR: Regular rate and rhythm. RESPIRATORY: No accessory muscle use. Improved no expiratory wheezes Breath sounds equal bilaterally. GASTROINTESTINAL: Abdomen soft, nondistended. Tender right upper and epigastric areas as well as right chest wall MUSCULOSKELETAL: Extremities without clubbing, cyanosis, or edema. No obvious deformities. NEUROLOGICAL: Awake and alert. No obvious cranial nerve deficits. Motor grossly within normal limits. Five out of 5 muscle strength in the arms and legs. Normal speech. Nonfocal PSYCHIATRIC: Appropriate mood and affect; insight and judgment normal. Procedures none A/P Problem List: (1) PNA (pneumonia) ICD Code: J18.9 Status: Acute (2) COPD (chronic obstructive pulmonary disease) ICD Code: J44.9 Status: Acute (3) Bwrbg-3-yrdnubzntpl deficiency ICD Code: E88.01 Status: Acute (4) DM (diabetes mellitus) ICD Code: E11.9 Status: Acute (5) HTN (hypertension) ICD Code: I10 Status: Acute Assessment and Plan 41-year-old male with a PMH of Alpha 1 Antitrypsin Deficiency, COPD, O2 Dependent on 3L NC, DM and HTN who presented with SOB Severe sepsis: Secondary to pneumonia as below. Tachycardia and tachypnea. Lactic acid 2.2. Antibiotics as below. Blood cultures with NGTD. IVF. Improved PNA: CXR w/ RLL consolidation, reviewed. Progressive SOB x2-3 days w/ non- productive cough. Cover for HCAP with IV Zosyn and switch to Augmentin. Urinary antigens negative. Sputum culture primarily growing normal respiratory gillian. Intermittent hemoptysis for bronchoscopy today by Pulmonary. Stable labs. CT results discussed with the patient COPD: Chronic Respiratory Failure on home O2 secondary to Alpha-1 Antitrypsin deficiency. Presenting w/ Acute Exacerbation. Improving continue prednisone dc IV Solu-Medrol. DuoNeb scheduled and as needed. Symbicort, Mucinex. Improving continue by mouth steroids DM: Sliding scale w/ Accu-Cheks. Continue home Metformin, Invokana. Hyperglycemia secondary to steroids. Stable HTN: Borderline low in the morning secondary to trazodone. Patient educated. Continue Lisinopril with hold parameters. Monitor BP. Abdominal pain with history of pancreatitis. Tolerating by mouth. Unremarkable CBC, CMP and lipase. Continue pain management. GERD: Continue H2 dereck. FEN. IVF and po DVT Prophylaxis: SCD/Teds. Discharge Planning Discharge when cleared by pulmonary Ty Price MD Aug 21, 2016 12:18
--- NOTE | 2016-08-21 16:31 | HHI.PR ---
Subjective Remarks 41 YOWM with Alpha -1 def, COPD,Hemoptysis Had hemotysis again yesterday, better today No Fever No CP Objective Vital Signs Vital Signs Date Time Temp Pulse Resp B/P Pulse Ox O2 Delivery O2 Flow Rate FiO2 08/21/16 11:34 96.7 86 17 106/73 92 08/21/16 07:52 96.9 68 17 107/65 96 08/21/16 07:14 Nasal Cannula 3.00 08/21/16 04:00 96.9 67 16 102/66 96 08/21/16 00:00 96.5 74 17 93/59 94 08/20/16 21:28 87 08/20/16 20:00 97.3 91 16 109/74 93 I/O 08/20/16 08/20/16 08/20/16 08/21/16 08/21/16 08/21/16 07:00 15:00 23:00 07:00 15:00 23:00 Intake Total 720 ml 600 ml 240 ml 260 ml 539 ml Balance 720 ml 600 ml 240 ml 260 ml 539 ml Intake Oral 720 ml 600 ml 240 ml 0 ml IV Total 260 ml 539 ml # Voids 2 3 1 1 1 # Bowel Movements 0 0 0 Result Diagram: 08/19/1651908/19/16 0520 Objective Remarks GENERAL: WBWn Wm NAD SKIN: Warm and dry. HEAD: Normocephalic. EYES: No scleral icterus. No injection or drainage. NECK: Supple, trachea midline. No JVD or lymphadenopathy. CARDIOVASCULAR: Regular rate and rhythm without murmurs, gallops, or rubs. RESPIRATORY: Breath sounds equal bilaterally. No accessory muscle use. GASTROINTESTINAL: Abdomen soft, non-tender, nondistended. MUSCULOSKELETAL: No cyanosis, or edema. BACK: Nontender without obvious deformity. No CVA tenderness. A/P Assessment and Plan Hemoptysis COPD Bronchitis Alpha-1 antitrypsin def Right basal nodular infilt PLAN: DW pt, agrees for Bronch Explained procedure and Complications Cont Abx ,Steroids Will need FU study for right basal infilt Gareth Garcia MD Aug 21, 2016 16:31
[2016-08-21] MEDS ORDERED: methylPREDNISolone SOD SUCC 125 MG/2 ML VIAL ONE (16:37)
[2016-08-21] MEDS ORDERED: *morphine SULFATE 8 MG/ML PERIprocedure ONLY ONE (17:27)
[2016-08-21] MEDS ORDERED: MIDAZOLAM HCL 2 MG/2 ML VIAL ONE (17:30)
--- NOTE | 2016-08-21 17:48 | RADRPT ---
EXAM DATE/TIME: 08/21/2016 17:32 [facility] COMPARISON: CT THORAX W/O CONTRAST, August 18, 2016, 14:32. CHEST SINGLE AP, August 12, 2016, 21:25. INDICATIONS : Post bronchoscopy. MEDICAL HISTORY : Hypertension. Chronic obstructive pulmonary disease. Diabetes mellitus type II. SURGICAL HISTORY : None. ENCOUNTER: Initial ACUITY: 1 day PAIN SCORE: 2/10 LOCATION: Right chest FINDINGS: A single view of the chest demonstrates the lungs to be symmetrically aerated without evidence of mas s, infiltrate or effusion. The cardiomediastinal contours are unremarkable. Osseous structures are intact. Minimal oblique area of scarring or atelectasis noted in the inferior right midlung field. CONCLUSION: Minimal area of scarring or atelectasis right mid lung field. Otherwise negative. No pneumothorax. Cisco Dalton MD on August 21, 2016 at 17:46 Board Certified Radiologist. This report was verified electronically.
[2016-08-21] MEDS ORDERED: DO NOT ADM ANY ANTICOAGULANT DRUGS XX PRN (18:30)
[2016-08-21] MEDS: ONDANSETRON HCL 4 MG/2 ML VIAL IVP PRN (18:48)
[2016-08-21] MEDS: traZODone HCL 100 MG TAB PO SCH (21:20)
[2016-08-22] VITALS (7 sets, daily range): BP systolic 94–129; BP diastolic 61–72; PULSE 68–110; RESP 16–17; TEMP 96.4–98.9; O2SAT 95–100
[2016-08-22] MEDS: ACETAMINOPHEN/HYDROcodone 325 MG/10 MG TAB PO PRN ×6 (01:21→22:28)
[2016-08-22] MEDS: SODIUM CHLOR 0.9% 1000 ML INJ 1,000 ML IV SCH ×3 (03:45→23:45)
[2016-08-22] MEDS: INSULIN ASPART SUPPLEMENTAL SCALE SQ SCH ×4 (06:34→20:51)
--- NOTE | 2016-08-22 06:58 | MR ---
cc: LEANNA DAVIDSON MD DATE 08/21/2016 PROCEDURE Bronchoscopy PREOPERATIVE DIAGNOSIS Hemoptysis POSTOPERATIVE DIAGNOSIS No endobronchial lesions seen. PROCEDURE Informed consent was obtained from the patient. The procedure and complications including complication of anesthesia, pneumothorax requiring chest tube, bleeding complications, injury to blood vessels, lungs, nerves, arrhythmia, and hypoxia, the patient understood and consented for the procedure. The patient was brought to operating room. Under general anesthesia, LMA tube was placed by anesthesiologist. Bronchoscope was done through LMA tube. Vocal cords are normal. Trachea is normal. The main hua is sharp. Bronchoscope was run through the left lung. Mild erythema of the left lower lobe were seen. No active bleeding was seen. All subsegments were patent. Then the bronchoscope was advanced to the right lung. The right upper, middle and lower lobe was seen. A small amount of mucous was suctioned. No endobronchial mucosal lesion was seen. No active bleeding was seen. Right lower lobe washings were done. Washings were sent for routine culture, AFB fungal culture and cytology. He tolerated the procedure well. MD MACY Morris/DESTINEY /5:04 PM /6:49 AM
[2016-08-22] MEDS: AMOXICILLIN/CLAVULANATE K 875 MG TAB PO SCH ×2 (09:00→20:51)
[2016-08-22] MEDS: CANAGLIFLOZIN PO SCH (09:00)
[2016-08-22] MEDS: FAMOTIDINE 20 MG TAB PO SCH ×2 (09:21→20:52)
[2016-08-22] MEDS: predniSONE 20 MG TAB PO SCH (09:21)
[2016-08-22] MEDS: guaiFENesin E.R. 600 MG TAB PO SCH ×2 (09:22→20:52)
[2016-08-22] MEDS: SODIUM CHLORIDE 0.9% FLUSH 5 ML FLUSH FLUSH SCH ×2 (09:22→21:00)
[2016-08-22] MEDS: SERTRALINE HCL 100 MG TAB PO SCH (09:22)
[2016-08-22] MEDS: metFORMIN HCL 500 MG TAB PO SCH ×2 (09:22→17:00)
--- NOTE | 2016-08-22 13:07 | HHI.PR ---
Subjective Remarks F/u hemoptysis. No recurrence dw RN, stable for pending pulmonary clearance Objective Vitals Vital Signs Date Time Temp Pulse Resp B/P Pulse Ox O2 Delivery O2 Flow Rate FiO2 08/22/16 08:30 98 Nasal Cannula 3.00 08/22/16 08:00 98.9 84 17 116/72 95 08/22/16 08:00 97.9 68 16 94/61 95 08/22/16 07:12 Nasal Cannula 3.00 08/22/16 04:00 96.4 85 16 102/64 97 08/22/16 00:00 96.8 99 16 105/67 95 08/21/16 21:53 96 21 08/21/16 20:10 96.9 70 16 105/77 96 08/21/16 18:40 Nasal Cannula 3.00 08/21/16 18:40 Nasal Cannula 3.00 08/21/16 18:30 98.0 76 16 95 Nasal Cannula 2 08/21/16 18:15 74 16 110/70 94 Nasal Cannula 2 08/21/16 18:00 78 16 119/78 94 Nasal Cannula 2 08/21/16 17:45 82 16 122/79 90 Nasal Cannula 2 08/21/16 17:30 82 16 119/80 92 Nasal Cannula 2 08/21/16 17:24 98.0 86 16 110/80 95 Nasal Cannula 2 08/21/16 15:20 96.8 76 17 123/77 95 I/O 08/21/16 08/21/16 08/21/16 08/22/16 08/22/16 08/22/16 07:00 15:00 23:00 07:00 15:00 23:00 Intake Total 260 ml 539 ml 1010 ml 240 ml Output Total 5 ml Balance 260 ml 539 ml 1005 ml 240 ml Intake Oral 0 ml 0 ml 360 ml 240 ml IV Total 260 ml 539 ml 150 ml Other 500 ml Estimated Blood Loss 5 ml # Voids 1 3 2 1 # Bowel Movements 0 0 1 0 Result Diagram: 08/19/1651908/19/16519 Objective Remarks GENERAL: Well-developed well-nourished in no distress SKIN: Warm and dry. HEAD: Atraumatic. Normocephalic. EYES: Pupils equal and round. No scleral icterus. No injection or drainage. ENT: No nasal bleeding or discharge. Mucous membranes pink and moist. No oral bleeding NECK: Trachea midline. No JVD. CARDIOVASCULAR: Regular rate and rhythm. RESPIRATORY: No accessory muscle use. Improved no expiratory wheezes Breath sounds equal bilaterally. GASTROINTESTINAL: Abdomen soft, nondistended. Improved Tender right upper and epigastric areas as well as right chest wall MUSCULOSKELETAL: Extremities without clubbing, cyanosis, or edema. No obvious deformities. NEUROLOGICAL: Awake and alert. No obvious cranial nerve deficits. Motor grossly within normal limits. Five out of 5 muscle strength in the arms and legs. Normal speech. Nonfocal PSYCHIATRIC: Appropriate mood and affect; insight and judgment normal. Procedures Bronchoscopy A/P Problem List: (1) PNA (pneumonia) ICD Code: J18.9 Status: Acute (2) COPD (chronic obstructive pulmonary disease) ICD Code: J44.9 Status: Acute (3) Nooic-9-npyceptdyyt deficiency ICD Code: E88.01 Status: Acute (4) DM (diabetes mellitus) ICD Code: E11.9 Status: Acute (5) HTN (hypertension) ICD Code: I10 Status: Acute Assessment and Plan 41-year-old male with a PMH of Alpha 1 Antitrypsin Deficiency, COPD, O2 Dependent on 3L NC, DM and HTN who presented with SOB Severe sepsis: Secondary to pneumonia as below. Tachycardia and tachypnea. Lactic acid 2.2. Antibiotics as below. Blood cultures with NGTD. IVF. Improved PNA: CXR w/ RLL consolidation, reviewed. Progressive SOB x2-3 days w/ non- productive cough. Cover for HCAP with IV Zosyn and switch to Augmentin. Urinary antigens negative. Sputum culture primarily growing normal respiratory gillian. Intermittent hemoptysis s/p bronchoscopy without endobronchial lesions. Improved hemoptysis none for over [address] results discussed with the patient. F/u pending cx and cytology COPD: Chronic Respiratory Failure on home O2 secondary to Alpha-1 Antitrypsin deficiency. Presenting w/ Acute Exacerbation. Improving continue prednisone dc IV Solu-Medrol. DuoNeb scheduled and as needed. Symbicort, Mucinex. Improving continue by mouth steroids DM: Sliding scale w/ Accu-Cheks. Continue home Metformin, Invokana. Hyperglycemia secondary to steroids. Stable HTN: Borderline low in the morning secondary to trazodone. Patient educated. Continue Lisinopril with hold parameters. Monitor BP. Abdominal pain with history of pancreatitis. Tolerating by mouth. Unremarkable CBC, CMP and lipase. Continue pain management. GERD: Continue H2 dereck. FEN. IVF and po DVT Prophylaxis: SCD/Teds. Discharge Planning Discharge when cleared by pulmonary Ty Price MD Aug 22, 2016 13:07
--- NOTE | 2016-08-22 13:25 | HHI.DS ---
Discharge Summary Admission Date Aug 12, 2016 at 22:47 Discharge Date: Aug 24, 2016 Admitting Diagnosis COPD exacerbation, pneumonia (1) PNA (pneumonia) ICD Code: J18.9 Diagnosis: Principal (2) COPD (chronic obstructive pulmonary disease) ICD Code: J44.9 Diagnosis: Principal (3) Slqon-2-sbwelcwauhn deficiency ICD Code: E88.01 Diagnosis: Principal (4) DM (diabetes mellitus) ICD Code: E11.9 Diagnosis: Secondary (5) HTN (hypertension) ICD Code: I10 Diagnosis: Secondary Procedures Bronchoscopy Brief History - From Admission This is a 41-year-old male with a PMH of Alpha 1 Antitrypsin Deficiency, COPD, O2 Dependent on 3L NC, DM and HTN who was brought to the ER by EMS secondary to c/o SOB. States symptoms have gotten progressively worse over the last 2-3 days. Denies fever or chills. Reports non-productive cough in addition to wheezing. S/p Solu-Medrol 125mg x1 and DuoNeb by EMS w/ some improvement. On arrival, BP 136/79, HR 132, O2 sat 93% on RA, Afebrile. CBC unremarkable. K+ 3.3. Lactic Acid 2.2. BS 267. CXR with minimal area of focal atelectasis or consolidation right base. S/p Blood Cultures, Rocephin/Zithro and Solu-Medrol in ER w/ improvement. CBC/BMP: 08/19/16 0520 08/19/16 0520 Imaging Last Impressions Chest X-Ray 08/21/16 0000 Signed Impressions: Service Date/Time: Sunday, August 21, 2016 17:32 - CONCLUSION: Minimal area of scarring or atelectasis right mid lung field. Otherwise negative. No pneumothorax. Cisco Dalton MD Chest CT 08/18/16 0000 Signed Impressions: Service Date/Time: Thursday, August 18, 2016 14:32 - CONCLUSION: 1. Emphysematous changes. 2. 2.6 x 1.1 cm pleural based nodule involving the right lung base. No prior exams for comparison. This may simple be postinflammatory in nature. I cannot exclude other etiologies at this point. A followup CT of the thorax is suggested in 3-6 months. 3. Left sided Bochdalek hernia containing fat. 4. Mild coronary artery atherosclerotic calcifications. Andrez Narvaez Jr., MD PE at Discharge GENERAL: Well-developed well-nourished in no distress SKIN: Warm and dry. HEAD: Atraumatic. Normocephalic. EYES: Pupils equal and round. No scleral icterus. No injection or drainage. ENT: No nasal bleeding or discharge. Mucous membranes pink and moist. No oral bleeding NECK: Trachea midline. No JVD. CARDIOVASCULAR: Regular rate and rhythm. RESPIRATORY: No accessory muscle use. Improved no expiratory wheezes Breath sounds equal bilaterally. GASTROINTESTINAL: Abdomen soft, nondistended. Improved Tender right upper and epigastric areas as well as right chest wall MUSCULOSKELETAL: Extremities without clubbing, cyanosis, or edema. No obvious deformities. NEUROLOGICAL: Awake and alert. No obvious cranial nerve deficits. Motor grossly within normal limits. Five out of 5 muscle strength in the arms and legs. Normal speech. Nonfocal PSYCHIATRIC: Appropriate mood and affect; insight and judgment normal. Hospital Course 41-year-old male with a PMH of Alpha 1 Antitrypsin Deficiency, COPD, O2 Dependent on 3L NC, DM and HTN who presented with SOB Severe sepsis: Secondary to pneumonia as below. Tachycardia and tachypnea. Lactic acid 2.2. Antibiotics as below. Blood cultures with NGTD. IVF. Improved PNA: CXR w/ RLL consolidation, reviewed. Progressive SOB x2-3 days w/ non- productive cough. Cover for HCAP with IV Zosyn and switch to Augmentin. Urinary antigens negative. Sputum culture primarily growing normal respiratory gillian. Intermittent hemoptysis s/p bronchoscopy without endobronchial lesions. Resolved hemoptysis. Stable labs. CT results discussed with the patient. F/ u pending cx and cytology negative to date COPD: Chronic Respiratory Failure on home O2 secondary to Alpha-1 Antitrypsin deficiency. Presenting w/ Acute Exacerbation. Improving continue prednisone dc IV Solu-Medrol. DuoNeb scheduled and as needed. Symbicort, Mucinex. Improving continue by mouth steroids DM: Sliding scale w/ Accu-Cheks. Continue home Metformin, Invokana. Hyperglycemia secondary to steroids. Stable HTN: Borderline low in the morning secondary to trazodone. Patient educated. Continue Lisinopril with hold parameters. Monitor BP. Abdominal pain with history of pancreatitis. Tolerating by mouth. Unremarkable CBC, CMP and lipase. Continue pain management. Also with pancreatic mass scheduled for EUS outpatient GERD: Continue H2 dereck. Epistaxis from oxygen. Monitor DVT Prophylaxis: SCD/Teds. Pt Condition on Discharge: Stable Discharge Disposition: Disch w/ Home Health Serv Discharge Time: <= 30 minutes Discharge Instructions DIET: Follow Instructions for: Heart Healthy Diet, Diabetic Diet Activities you can perform: Regular-No Restrictions Activities to Avoid: Driving Follow up Referrals: Gastroenterology - 1 Week PCP Follow-up - 1 Week Pulmonology - 1 Week New Orders: X-RAY CHEST PA & LAT - 6 Weeks New Medications: Amoxicillin-Clavulanate (Augmentin) 875-125 mg Tab 875 MG PO BID not for use in CrCl <30 ml/min. Infection #16 Ref 0 TAB Benzonatate (Tessalon Perles) 100 Mg Cap 200 MG PO TID PRN COUGH #60 Ref 0 CAP Guaifenesin ER 12 HR (Mucinex ER 12 HR) 600 Mg Anne Marie 600 MG PO BID cough #30 TAB Hydrocodone-Acetaminophen (Hydrocodone-Acetaminophen) 10-325 mg Tab 1 TAB PO Q6HR PRN PAIN SCALE 6 TO 10 #28 TAB Prednisone (Prednisone) 20 Mg Tab 40 MG PO DAILY Take 2 pills daily for 3 Days, then one daily for 3 days, then half a pill a day for 3 Days. Control Inflammation #11 TAB Continued Medications: Albuterol 18 GM Inh (Ventolin Hfa 18 GM Inh) 90 Mcg/Act Aer 2 PUFF INH Q4-6H PRN SHORTNESS OF BREATH #1 Ref 0 INHALER Albuterol Neb (Albuterol Neb) 2.5 Mg/3 Ml Neb 2.5 MG NEB Q4HR NEB While awake Breathing Treatment #60 Ref 0 NEBULE Canagliflozin (Invokana) 300 Mg Tab 500 MG PO DAILY Take before 1st meal of day. Blood Sugar Management #30 Ref 0 TAB Metformin (Metformin) 500 Mg Tab 500 MG PO BIDPC With meals Blood Sugar Management #60 Ref 0 TAB Pantoprazole (Pantoprazole) 40 Mg Tab 40 MG PO DAILY Reflux #30 Ref 0 TAB Sertraline (Zoloft) 100 Mg Tab 200 MG PO DAILY #30 Ref 0 TAB Trazodone (Trazodone) 100 Mg Tab 250 MG PO HS Control Depression #30 Ref 0 TAB ([o2]) 3 LITER DEV.CANULA DAILY Ty Price MD Aug 22, 2016 13:25
[2016-08-22] MEDS: ONDANSETRON HCL 4 MG/2 ML VIAL IVP PRN (16:11)
--- NOTE | 2016-08-22 19:48 | HHI.PR ---
Subjective Remarks 41 YOWM with Alpha -1 def, COPD,Hemoptysis No Fever No CP No hemoptysis S[place] Objective Vital Signs Vital Signs Date Time Temp Pulse Resp B/P Pulse Ox O2 Delivery O2 Flow Rate FiO2 08/22/16 18:22 Nasal Cannula 3.00 08/22/16 16:00 98.7 110 16 109/68 100 08/22/16 12:00 98.9 84 17 116/72 95 08/22/16 08:30 98 Nasal Cannula 3.00 08/22/16 08:00 97.9 68 16 94/61 95 08/22/16 07:12 Nasal Cannula 3.00 08/22/16 04:00 96.4 85 16 102/64 97 08/22/16 00:00 96.8 99 16 105/67 95 08/21/16 21:53 96 21 08/21/16 20:10 96.9 70 16 105/77 96 I/O 08/21/16 08/21/16 08/21/16 08/22/16 08/22/16 08/22/16 07:00 15:00 23:00 07:00 15:00 23:00 Intake Total 260 ml 539 ml 1010 ml 240 ml 240 ml Output Total 5 ml 400 ml Balance 260 ml 539 ml 1005 ml 240 ml -160 ml Intake Oral 0 ml 0 ml 360 ml 240 ml 240 ml IV Total 260 ml 539 ml 150 ml Other 500 ml Output Urine Total 400 ml Estimated Blood Loss 5 ml # Voids 1 3 2 1 # Bowel Movements 0 0 1 0 0 Result Diagram: 08/19/1651908/19/16519 Objective Remarks GENERAL: WBWn Wm NAD SKIN: Warm and dry. HEAD: Normocephalic. EYES: No scleral icterus. No injection or drainage. NECK: Supple, trachea midline. No JVD or lymphadenopathy. CARDIOVASCULAR: Regular rate and rhythm without murmurs, gallops, or rubs. RESPIRATORY: Breath sounds equal bilaterally. No accessory muscle use. GASTROINTESTINAL: Abdomen soft, non-tender, nondistended. MUSCULOSKELETAL: No cyanosis, or edema. BACK: Nontender without obvious deformity. No CVA tenderness. A/P Assessment and Plan Hemoptysis COPD Bronchitis Alpha-1 antitrypsin def Right basal nodular infilt PLAN: Cont Abx ,Steroids Will need FU study for right basal infilt Check bronch results Gareth Garcia MD Aug 22, 2016 19:47
[2016-08-22] MEDS: traZODone HCL 100 MG TAB PO SCH (20:52)
[2016-08-23] VITALS (8 sets, daily range): BP systolic 99–137; BP diastolic 65–82; PULSE 58–88; RESP 16–18; TEMP 96–97.8; O2SAT 93–98
[2016-08-23] MEDS: ACETAMINOPHEN/HYDROcodone 325 MG/10 MG TAB PO PRN ×5 (03:06→19:58)
[2016-08-23] MEDS: INSULIN ASPART SUPPLEMENTAL SCALE SQ SCH ×4 (06:38→20:00)
[2016-08-23] MEDS: CANAGLIFLOZIN PO SCH (09:15)
[2016-08-23] MEDS: SODIUM CHLORIDE 0.9% FLUSH 5 ML FLUSH FLUSH SCH ×2 (09:15→20:00)
[2016-08-23] MEDS: metFORMIN HCL 500 MG TAB PO SCH ×2 (09:16→18:17)
[2016-08-23] MEDS: FAMOTIDINE 20 MG TAB PO SCH ×2 (09:16→19:59)
[2016-08-23] MEDS: predniSONE 20 MG TAB PO SCH (09:16)
[2016-08-23] MEDS: SERTRALINE HCL 100 MG TAB PO SCH (09:16)
[2016-08-23] MEDS: guaiFENesin E.R. 600 MG TAB PO SCH ×2 (09:17→19:59)
[2016-08-23] MEDS: SODIUM CHLOR 0.9% 1000 ML INJ 1,000 ML IV SCH ×2 (09:17→19:45)
[2016-08-23] MEDS: AMOXICILLIN/CLAVULANATE K 875 MG TAB PO SCH ×2 (09:17→19:59)
--- NOTE | 2016-08-23 11:39 | HHI.PR ---
Subjective Remarks Follow-up pneumonia. No more hemoptysis. Stable shortness of breath. Recommended to ambulate hallway discussed with RN Objective Vitals Vital Signs Date Time Temp Pulse Resp B/P Pulse Ox O2 Delivery O2 Flow Rate FiO2 08/23/16 08:00 96.2 63 18 102/72 97 08/23/16 04:00 97.0 62 17 104/66 97 08/23/16 00:09 96.8 58 16 99/69 96 08/22/16 19:00 98.4 84 17 129/69 96 08/22/16 18:22 Nasal Cannula 3.00 08/22/16 16:00 98.7 110 16 109/68 100 08/22/16 12:00 98.9 84 17 116/72 95 I/O 08/22/16 08/22/16 08/22/16 08/23/16 08/23/16 08/23/16 07:00 15:00 23:00 07:00 15:00 23:00 Intake Total 240 ml 240 ml 480 ml 240 ml Output Total 400 ml Balance 240 ml -160 ml 480 ml 240 ml Intake Oral 240 ml 240 ml 480 ml 240 ml Output Urine Total 400 ml # Voids 1 3 2 # Bowel Movements 0 0 0 0 Result Diagram: 08/19/1651908/19/16519 Objective Remarks GENERAL: Well-developed well-nourished in no distress SKIN: Warm and dry. HEAD: Atraumatic. Normocephalic. EYES: Pupils equal and round. No scleral icterus. No injection or drainage. ENT: No nasal bleeding or discharge. Mucous membranes pink and moist. No oral bleeding NECK: Trachea midline. No JVD. CARDIOVASCULAR: Regular rate and rhythm. RESPIRATORY: No accessory muscle use. Improved no expiratory wheezes Breath sounds equal bilaterally. GASTROINTESTINAL: Abdomen soft, nondistended. Improved Tender right upper and epigastric areas as well as right chest wall MUSCULOSKELETAL: Extremities without clubbing, cyanosis, or edema. No obvious deformities. NEUROLOGICAL: Awake and alert. No obvious cranial nerve deficits. Motor grossly within normal limits. Five out of 5 muscle strength in the arms and legs. Normal speech. PSYCHIATRIC: Appropriate mood and affect; insight and judgment normal. Procedures Bronchoscopy A/P Problem List: (1) PNA (pneumonia) ICD Code: J18.9 Status: Acute (2) COPD (chronic obstructive pulmonary disease) ICD Code: J44.9 Status: Acute (3) Fopuh-5-feyhmitqxtp deficiency ICD Code: E88.01 Status: Acute (4) DM (diabetes mellitus) ICD Code: E11.9 Status: Acute (5) HTN (hypertension) ICD Code: I10 Status: Acute Assessment and Plan 41-year-old male with a PMH of Alpha 1 Antitrypsin Deficiency, COPD, O2 Dependent on 3L NC, DM and HTN who presented with SOB Severe sepsis: Secondary to pneumonia as below. Tachycardia and tachypnea. Lactic acid 2.2. Antibiotics as below. Blood cultures with NGTD. IVF. Improved PNA: CXR w/ RLL consolidation, reviewed. Progressive SOB x2-3 days w/ non- productive cough. Cover for HCAP with IV Zosyn and switch to Augmentin. Urinary antigens negative. Sputum culture primarily growing normal respiratory gillian. Intermittent hemoptysis s/p bronchoscopy without endobronchial lesions. Resolved hemoptysis. Stable labs. CT results discussed with the patient. F/ u pending cx and cytology negative to date COPD: Chronic Respiratory Failure on home O2 secondary to Alpha-1 Antitrypsin deficiency. Presenting w/ Acute Exacerbation. Improving continue prednisone dc IV Solu-Medrol. DuoNeb scheduled and as needed. Symbicort, Mucinex. Improving continue by mouth steroids DM: Sliding scale w/ Accu-Cheks. Continue home Metformin, Invokana. Hyperglycemia secondary to steroids. Stable HTN: Borderline low in the morning secondary to trazodone. Patient educated. Continue Lisinopril with hold parameters. Monitor BP. Abdominal pain with history of pancreatitis. Tolerating by mouth. Unremarkable CBC, CMP and lipase. Continue pain management. Also with pancreatic mass scheduled for EUS outpatient GERD: Continue H2 dereck. FEN. IVF and po DVT Prophylaxis: SCD/Teds. Discharge Planning Discharge when cleared by pulmonary pending cultures and cytology Ty Price MD Aug 23, 2016 11:39
[2016-08-23] MEDS: traZODone HCL 100 MG TAB PO SCH (19:59)
--- NOTE | 2016-08-23 20:20 | HHI.PR ---
Subjective Remarks 41 YOWM with Alpha -1 def, COPD,Hemoptysis No Fever No CP No hemoptysis Feels tightness in chest on ambulation Objective Vital Signs Vital Signs Date Time Temp Pulse Resp B/P Pulse Ox O2 Delivery O2 Flow Rate FiO2 08/23/16 17:53 Nasal Cannula 2.00 08/23/16 16:00 97.8 88 18 125/70 97 08/23/16 12:29 Nasal Cannula 3.00 21 08/23/16 11:43 96.0 74 18 137/82 93 08/23/16 11:15 96 Nasal Cannula 2.00 08/23/16 08:00 96.2 63 18 102/72 97 08/23/16 04:00 97.0 62 17 104/66 97 08/23/16 00:09 96.8 58 16 99/69 96 I/O 08/22/16 08/22/16 08/22/16 08/23/16 08/23/16 08/23/16 07:00 15:00 23:00 07:00 15:00 23:00 Intake Total 240 ml 240 ml 480 ml 240 ml 720 ml Output Total 400 ml Balance 240 ml -160 ml 480 ml 240 ml 720 ml Intake Oral 240 ml 240 ml 480 ml 240 ml 720 ml Output Urine Total 400 ml # Voids 1 3 2 2 # Bowel Movements 0 0 0 0 1 Result Diagram: 08/19/1651908/19/16519 Objective Remarks GENERAL: WBWn Wm NAD SKIN: Warm and dry. HEAD: Normocephalic. EYES: No scleral icterus. No injection or drainage. NECK: Supple, trachea midline. No JVD or lymphadenopathy. CARDIOVASCULAR: Regular rate and rhythm without murmurs, gallops, or rubs. RESPIRATORY: Breath sounds equal bilaterally. No accessory muscle use. GASTROINTESTINAL: Abdomen soft, non-tender, nondistended. MUSCULOSKELETAL: No cyanosis, or edema. BACK: Nontender without obvious deformity. No CVA tenderness. A/P Assessment and Plan Hemoptysis COPD Bronchitis Alpha-1 antitrypsin def Right basal nodular infilt PLAN: Cont Abx ,Steroids Will need FU study for right basal infilt Use Acapella DW family Cytology pending. Gareth Garcia MD Aug 23, 2016 20:20
[2016-08-24] MEDS: ACETAMINOPHEN/HYDROcodone 325 MG/10 MG TAB PO PRN ×5 (00:13→16:45)
[2016-08-24 00:33] VITALS: O2SAT 98
[2016-08-24] MEDS: SODIUM CHLOR 0.9% 1000 ML INJ 1,000 ML IV SCH ×2 (02:03→15:45)
[2016-08-24 03:35] VITALS: BP 103/62; PULSE 64; RESP 16; TEMP 96; O2SAT 96
[2016-08-24] MEDS: INSULIN ASPART SUPPLEMENTAL SCALE SQ SCH ×3 (05:35→16:45)
[2016-08-24 08:00] VITALS: BP 95/60; PULSE 68; RESP 18; TEMP 96.7; O2SAT 96
[2016-08-24 08:03] VITALS: O2SAT 98
[2016-08-24] MEDS: CANAGLIFLOZIN PO SCH (08:39)
[2016-08-24] MEDS: AMOXICILLIN/CLAVULANATE K 875 MG TAB PO SCH (08:39)
[2016-08-24] MEDS: SODIUM CHLORIDE 0.9% FLUSH 5 ML FLUSH FLUSH SCH (08:39)
[2016-08-24] MEDS: guaiFENesin E.R. 600 MG TAB PO SCH (08:40)
[2016-08-24] MEDS: predniSONE 20 MG TAB PO SCH (08:40)
[2016-08-24] MEDS: FAMOTIDINE 20 MG TAB PO SCH (08:40)
[2016-08-24] MEDS: metFORMIN HCL 500 MG TAB PO SCH (08:40)
[2016-08-24] MEDS: SERTRALINE HCL 100 MG TAB PO SCH (08:40)
[2016-08-24 12:00] VITALS: BP 135/85; PULSE 94; RESP 18; TEMP 97.1; O2SAT 94
--- NOTE | 2016-08-24 14:06 | HHI.PR ---
Subjective Remarks Follow-up hemoptysis. No recurrence. Reports of intermittent epistaxis no trauma. Discussed with pulmonary, cytology will not be available for the next 1 -2 days. He is clinically stable and can be discharged home. Discussed with RN Objective Vitals Vital Signs Date Time Temp Pulse Resp B/P Pulse Ox O2 Delivery O2 Flow Rate FiO2 08/24/16 12:00 97.1 94 18 135/85 94 08/24/16 08:43 Nasal Cannula 2.00 21 08/24/16 08:03 98 Nasal Cannula 2.00 08/24/16 08:00 96.7 68 18 95/60 96 08/24/16 03:35 96.0 64 16 103/62 96 08/24/16 00:33 98 Nasal Cannula 2.00 08/23/16 23:25 96.3 72 17 100/65 97 08/23/16 19:20 97.6 79 17 118/68 98 08/23/16 17:53 Nasal Cannula 2.00 08/23/16 16:00 97.8 88 18 125/70 97 I/O 08/23/16 08/23/16 08/23/16 08/24/16 08/24/16 08/24/16 07:00 15:00 23:00 07:00 15:00 23:00 Intake Total 240 ml 720 ml 720 ml 240 ml Balance 240 ml 720 ml 720 ml 240 ml Intake Oral 240 ml 720 ml 720 ml 240 ml # Voids 2 2 3 1 # Bowel Movements 0 1 0 0 Objective Remarks GENERAL: Well-developed well-nourished in no distress SKIN: Warm and dry. HEAD: Atraumatic. Normocephalic. EYES: Pupils equal and round. No scleral icterus. No injection or drainage. ENT: No nasal bleeding or discharge. Mucous membranes pink and moist. No oral bleeding NECK: Trachea midline. No JVD. CARDIOVASCULAR: Regular rate and rhythm. RESPIRATORY: No accessory muscle use. Improved no expiratory wheezes Breath sounds equal bilaterally. GASTROINTESTINAL: Abdomen soft, nondistended. Improved Tender right upper and epigastric areas as well as right chest wall MUSCULOSKELETAL: Extremities without clubbing, cyanosis, or edema. No obvious deformities. NEUROLOGICAL: Awake and alert. No obvious cranial nerve deficits. Motor grossly within normal limits. Five out of 5 muscle strength in the arms and legs. Normal speech. PSYCHIATRIC: Appropriate mood and affect; insight and judgment normal. Procedures Bronchoscopy A/P Problem List: (1) PNA (pneumonia) ICD Code: J18.9 Status: Acute (2) COPD (chronic obstructive pulmonary disease) ICD Code: J44.9 Status: Acute (3) Dcqml-8-ccjjdghsasx deficiency ICD Code: E88.01 Status: Acute (4) DM (diabetes mellitus) ICD Code: E11.9 Status: Acute (5) HTN (hypertension) ICD Code: I10 Status: Acute Assessment and Plan 41-year-old male with a PMH of Alpha 1 Antitrypsin Deficiency, COPD, O2 Dependent on 3L NC, DM and HTN who presented with SOB Severe sepsis: Secondary to pneumonia as below. Tachycardia and tachypnea. Lactic acid 2.2. Antibiotics as below. Blood cultures with NGTD. IVF. Improved PNA: CXR w/ RLL consolidation, reviewed. Progressive SOB x2-3 days w/ non- productive cough. Cover for HCAP with IV Zosyn and switch to Augmentin. Urinary antigens negative. Sputum culture primarily growing normal respiratory gillian. Intermittent hemoptysis s/p bronchoscopy without endobronchial lesions. Resolved hemoptysis. Stable labs. CT results discussed with the patient. F/ u pending cx and cytology negative to date COPD: Chronic Respiratory Failure on home O2 secondary to Alpha-1 Antitrypsin deficiency. Presenting w/ Acute Exacerbation. Improving continue prednisone dc IV Solu-Medrol. DuoNeb scheduled and as needed. Symbicort, Mucinex. Improving continue by mouth steroids DM: Sliding scale w/ Accu-Cheks. Continue home Metformin, Invokana. Hyperglycemia secondary to steroids. Stable HTN: Borderline low in the morning secondary to trazodone. Patient educated. Continue Lisinopril with hold parameters. Monitor BP. Abdominal pain with history of pancreatitis. Tolerating by mouth. Unremarkable CBC, CMP and lipase. Continue pain management. Also with pancreatic mass scheduled for EUS outpatient GERD: Continue H2 dereck. Epistaxis from oxygen. Monitor DVT Prophylaxis: SCD/Teds. Discharge Planning Stable for dc pt to f/u cytology results with Ty Mathis MD Aug 24, 2016 14:06
[2016-08-24 16:00] VITALS: BP 126/82; PULSE 94; RESP 19; RESP 24; TEMP 98.3; O2SAT 92
--- NOTE | 2016-08-24 16:44 | HHI.PR ---
Subjective Remarks 41 YOWM with Alpha -1 def, COPD,Hemoptysis No Fever No CP No hemoptysis BAL cytology negative for malig cells Objective Vital Signs Vital Signs Date Time Temp Pulse Resp B/P Pulse Ox O2 Delivery O2 Flow Rate FiO2 08/24/16 12:00 97.1 94 18 135/85 94 08/24/16 08:43 Nasal Cannula 2.00 21 08/24/16 08:03 98 Nasal Cannula 2.00 08/24/16 08:00 96.7 68 18 95/60 96 08/24/16 03:35 96.0 64 16 103/62 96 08/24/16 00:33 98 Nasal Cannula 2.00 08/23/16 23:25 96.3 72 17 100/65 97 08/23/16 19:20 97.6 79 17 118/68 98 08/23/16 17:53 Nasal Cannula 2.00 I/O 08/23/16 08/23/16 08/23/16 08/24/16 08/24/16 08/24/16 07:00 15:00 23:00 07:00 15:00 23:00 Intake Total 240 ml 720 ml 720 ml 240 ml Balance 240 ml 720 ml 720 ml 240 ml Intake Oral 240 ml 720 ml 720 ml 240 ml # Voids 2 2 3 1 # Bowel Movements 0 1 0 0 Objective Remarks GENERAL: WBWn Wm NAD SKIN: Warm and dry. HEAD: Normocephalic. EYES: No scleral icterus. No injection or drainage. NECK: Supple, trachea midline. No JVD or lymphadenopathy. CARDIOVASCULAR: Regular rate and rhythm without murmurs, gallops, or rubs. RESPIRATORY: Breath sounds equal bilaterally. No accessory muscle use. GASTROINTESTINAL: Abdomen soft, non-tender, nondistended. MUSCULOSKELETAL: No cyanosis, or edema. BACK: Nontender without obvious deformity. No CVA tenderness. A/P Assessment and Plan Hemoptysis COPD Bronchitis Alpha-1 antitrypsin def Right basal nodular infilt PLAN: Cont Abx ,Steroids Will need FU study for right basal infilt Use Acapella DW pt cytology result Stable from pulm standpoint to DC home He will need CT chest 4-6 weeks to make sure right lung density resolves If not he will need CT guided bx Pt will FU with Dr. Ansari, he has appointment on 08/29/2016 Gareth Garcia MD Aug 24, 2016 16:44
== END 2016-08-24 18:46 | disposition home or self-care (01) | DRG 871 ==
LOC: NEPC 20:41 → OBSVTOIN 22:47 → NEDA 22:47 → NEPGCP 08-13 00:29 → NEPHCDU 08-13 10:29 → N06A 08-13 17:21
PROVIDERS: ADMIT Internal Medicine; ATTEND Internal Medicine
PROC: 0BB68ZX Excision of Right Lower Lobe Bronchus, Via Natural or Artificial Opening Endoscopic, Diagnostic (ICD-10-PCS; principal; 2016-08-21 16:43)
DX: A41.9 Sepsis, unspecified organism (principal); J18.9 Pneumonia, unspecified organism; J96.10 Chronic respiratory failure, unspecified whether with hypoxia or hypercapnia; E88.01 Alpha-1-antitrypsin deficiency; J44.0 Chronic obstructive pulmonary disease with (acute) lower respiratory infection; Z99.81 Dependence on supplemental oxygen; K86.1 Other chronic pancreatitis; E11.65 Type 2 diabetes mellitus with hyperglycemia; J44.1 Chronic obstructive pulmonary disease with (acute) exacerbation; R65.20 Severe sepsis without septic shock; I10 Essential (primary) hypertension; K21.9 Gastro-esophageal reflux disease without esophagitis; R04.0 Epistaxis; Z87.891 Personal history of nicotine dependence; Z79.84 Long term (current) use of oral hypoglycemic drugs
CPT/HCPCS: 71010; 71250; 80048; 80053; 82550; 82948; 83605; 83690; 83735; 84484; 85007; 85025; 85027; 85379; 85610; 85730; 87015; 87040; 87070; 87102; 87116; 87205; 87206; 87449; 87804; 93005; 94640; 94664; 94667; 94668; 96361; 96374; J0456; J0696; J1815; J2250; J2270; J2370; J2405; J2543; J2920; J2930; J7030; J7050; J7512